=== PATIENT | female | born 1960 | race African-American/Black ===

== ENCOUNTER 2025-04-26 12:43 | Outpatient (CLI) | payer MEDICARE, MEDICAID, SELFPAY ==
--- NOTE | ~2025-04-26 | CT_ITS ---
EXAMINATION:CT lung screening DATE: 04/26/2025 13:13 INDICATION: Screening TECHNIQUE: Computed tomography (CT) of the chest was performed without intravenous contrast. The dose-length product (DLP) was 240.07 mGy-cm. COMPARISON: None. FINDINGS: Mild spiculated nodular appearing fibrosing changes in the lung bases with no discretely defined nodule or mass. No consolidation effusion or pneumothorax. Small to moderate-sized hiatal hernia. Heart size normal. Mild coronary artery calcifications. No pericardial effusion or bulky lymphadenopathy. Mild degenerative changes throughout the thoracic spine. No acute process seen in the visualized portions of the upper abdomen or visualized extrathoracic soft tissues.. IMPRESSION: 1. Likely benign nodular fibrosing changes in lung bases. Lung RADS 3. Correlate with follow-up low-dose lung cancer screening chest CT in 6 months. 2. Other chronic findings as above. Reviewed, dictated and finalized at location A. LINING PASTER IMPRESSION: 1. Likely benign nodular fibrosing changes in lung bases. Lung RADS 3. Correlat e with follow-up low-dose lung cancer screening chest CT in 6 months. 2. Other chronic findings as above.
--- OUTSIDE RECORDS SUMMARY | 2025-04-26 13:35 | XMS_ITS | Encounter Summary ---
Author Organization [facility] Address [address] [place] [address] Phone Care Team Providers Care College Archivist Name Role Phone Valentin Diaz MD Primary Care Provider +1 [phone] Joyce Church CATSHOVEL DRIVER Unavailable Unavailab Carl Trinidad MD Unavailable Kaity Cancino MD Primary Care Provider +1- [phone] Chicho Walker MD Primary Care Provider +1 -[phone] Kaity Cancino MD Primary Care Provider +1- [phone] Chicho Walker MD Primary Care Provider +1 -[phone] Reason for Referral * Radiology Services (Routine) - Closed Specialty Diagnoses / Procedures Referred By Brando [email or web address] Referred To Contact Radiology Diagnoses Cervical lymphadenopathy Procedures CT SOFT TISSUE NECK W CONTRAST Valentin Diaz MD #[address] [address] Phone: tel: fax: Referral ID Status Reason Start Date Expiration Date Visits Re quested Visits Authorized [id number] Closed 06/23/2020 1 1 S PRODUCTION MACHINE OPERATOR Reason for Visit * Reason Comments Medication Refill Encounter Details Date Type Department Care Team (Late st Contact Info) Description 06/23/2020 Refill [facility] - Family Medicine [facility] [address] [place] [address] Valentin Diaz MD #[address] [address] Medication Refill Social History Tobacco Use Types Packs/Day Years Used Date Smoking Tobacco: Former Cigarettes 1 43 1 - 03/08/2015 Smokeless Tobacco: Never Alcohol Use Standard Drinks/Week Comments Not Currently 0 (1 standard drink = 0.6 oz pur e alcohol) pt hasn't drank in 20 years PHQ-2 Answer Date Recorded Total Score - Questions 1-9 7 06/10 Sexually Active Control Partners Comments Not Currently Comments No Sex and Gender Information Value Date Recorded Sex Assigned at Not on file Legal Sex Female 11:46 PM CDT Gender Identity Not on file Sexual Orientation Not on file COVID-19 Exposure Response Date Recorded In the last month, have you been in contact with someone who was confirmed or suspected to have Coronavirus / COVID-19? No / Unsure 06/20/2020 12:51 PM GLASS PRODUCTION MACHINE OPERATOR documented as of this encounter Plan of Treatment Scheduled Orders Name Type Priority Associated Diagnoses Orde r Schedule CT SOFT TISSUE NECK W CONTRAST Imaging Routine Cervical lymphadenopathy Expected: 06/23/2020 (Approximate), Expires: 06/23/2021 documented as of this encounter Visit Diagnoses Diagnosis Cervical lymphadenopathy- Primary Enlargement of lymph nodes documented in this encounter Additional Health Concerns Assessment Noted Time PHQ-9 Depression Total Score: 7 06/20/19 21 1:00 PM GLASS PRODUCTION MACHINE OPERATOR documented as of this encounter Care Teams College Archivist Relationship Specialty Start Date End Date Valentin Diaz MD #[address] [address] PCP - General Family Medicine 11/28/18 02/23/23 Kaity Cancino MD [address] [place] [address] PCP - General Family Medicine 03/10/24 05/29/24 Chicho Walker MD [address] [place] [address] PCP - General Internal Medicine 05/30/24 06/20/24 Kaity Cancino MD [address] [place] [address] PCP - General Family Medicine 06/21/24 07/19/24 Chicho Walker MD [address] [place] [address] PCP - General Internal Medicine 07/20/24 Joyce Church, SARAN [place] Product Manager [employer] 07/31/21 10/14/21 Carl Myles MD #[address] [address] Consulting Physician Colon and Rectal Surgery 03/04/22 documented as of this encounter
--- OUTSIDE RECORDS SUMMARY | 2025-04-26 13:35 | XMS_ITS | Encounter Summary ---
Author Organization [facility] Address [address] [place] [address] Phone Care Team Providers Care Banking Representative Name Role Phone Valentin Diaz MD Primary Care Provider +1 -[phone] Joyce Church MAGNETIC HEALER Unavailable Unavailab Carl Trinidad MD Unavailable Kaity Cancino MD Primary Care Provider +- [phone] Chicho Walker MD Primary Care Provider +[phone] Kaity Cancino MD Primary Care Provider + [phone] Chicho Walker MD Primary Care Provider + -[phone] Reason for Visit * Reason Comments Medication Refill Encounter Details Date Type Department Care Team (Late st Contact Info) Description 07/18/2020 Refill [facility] #[address] [place] [address] Valentin Diaz MD #[address] [address] Medication Refill Social History Tobacco Use Types [...] have Coronavirus / COVID-19? No / Unsure 07/17/2020 10:39 AM MIXING MACHINE ATTENDANT documented as of this encounter Miscellaneous Notes * Telephone Encounter - Sera Chowdary RN - 07/18/2020 11:34 AM CST The original prescription was discontinued on 06/17/2020 by Valentin Diaz MD for the following reason: Therapy completed. NG MACHINE ATTENDANT documented in this encounter Plan of Treatment Not on file documented as of this encounter Visit Diagnoses Not on filedocumented in this encounter Additional Health Concerns Assessment Noted Time PHQ-9 Depression Total Score: 7 06/20/19 21 1:00 PM MIXING MACHINE ATTENDANT documented as of this encounter Care Teams Banking Representative Relationship Specialty Start Date End Date Valentin Diaz MD #[address] [address] PCP - General Family Medicine 11/28/18 02/23/23 Kaity Cancino MD [address] [place] [address] PCP - General Family Medicine 03/10/24 05/29/24 Chicho Walker MD [address] [place] [address] PCP - General Internal Medicine 05/30/24 06/20/24 Kaity Cancino MD [address] [place] [address] PCP - General Family Medicine 06/21/24 07/19/24 Chicho Walker MD [address] [place] [address] PCP - General Internal Medicine 07/20/24 Joyce Church LSW PR Manager Laboratory 07/31/21 10/14/21 Carl Myles MD #[address] [address] Consulting Physician Colon and Rectal Surgery 03/04/22 documented as of this encounter
--- OUTSIDE RECORDS SUMMARY | 2025-04-26 13:35 | XMS_ITS | Encounter Summary ---
Author Organization [facility] Address [address] [place] [address] Phone Care Team Providers Care Lead Software Tester Name Role Phone Valentin Diaz MD Primary Care Provider +1 -[phone] Joyce Church CALL BOX WIRER Unavailable Unavailab Carl Trinidad MD Unavailable Kaity Cancino MD Primary Care Provider +- [phone] Chicho Walker MD Primary Care Provider + -[phone] Kaity Cancino MD Primary Care Provider + [phone] Chicho Walker MD Primary Care Provider + -[phone] Reason for Visit * Reason Comments Medication Refill Encounter Details Date Type Department Care Team (Late st Contact Info) Description 10/30/2020 Refill [facility] #[address] [place] [address] Valentin Diaz MD #[address] [address] Medication Refill Social History Tobacco Use Types [...] have Coronavirus / COVID-19? No / Unsure 10/01/2020 11:39 AM CDT documented as of this encounter Miscellaneous Notes * Telephone Encounter - Sera Chowdary RN - 10/31/2020 12:08 PM CDT The original prescription was reordered on 10/30/2020 by Valentin Diaz MD documented in this encounter Plan of Treatment Not on file documented as of this encounter Visit Diagnoses Not on filedocumented in this encounter Additional Health Concerns Assessment Noted Time PHQ-9 Depression Total Score: 7 06/20/19 21 1:00 PM VIDEO PRODUCTION INTERN documented as of this encounter Care Teams Lead Software Tester Relationship Specialty Start Date End Date Valentin Diaz MD #[address] [address] PCP - General Family Medicine 11/28/18 02/23/23 Kaity Cancino MD [address] [place] [address] PCP - General Family Medicine 03/10/24 05/29/24 Chicho Walker MD [address] [place] [address] PCP - General Internal Medicine 05/30/24 06/20/24 Kaity Cancino MD [address] [place] [address] PCP - General Family Medicine 06/21/24 07/19/24 Chicho Walker MD [address] [place] [address] PCP - General Internal Medicine 07/20/24 Joyce Church LSW [place] Fisheries Diver 07/31/21 10/14/21 Carl Myles MD #[address] [address] Consulting Physician Colon and Rectal Surgery 03/04/22 documented as of this encounter
--- OUTSIDE RECORDS SUMMARY | 2025-04-26 13:35 | XMS_ITS | Encounter Summary ---
Author Organization [facility] Address [address] [place] [address] Phone Care Team Providers Care Wind Up Worker Name Role Phone Valentin Diaz MD Primary Care Provider [phone] [phone] Carl Myles MD Unavailable Kaity Cancino MD Primary Care Provider + [phone] Chicho Walker MD Primary Care Provider +[phone] Kaity Cancino MD Primary Care Provider + [phone] Chicho Walker MD Primary Care Provider +[phone] Reason for Visit * Reason Comments Medication Refill Encounter Details Date Type Department Care Team (Late st Contact Info) Description 01/08/2022 Refill [facility] #[address] [place] [address] Valentin Diaz MD #[address] [address] Medication Refill Social History Tobacco Use Types Packs/Day Years Used Date Smoking Tobacco: Every Day Cigarettes 0.5 43 Started: 03/08/1972; Last attempted to quit: 03/08/2015 Smokeless Tobacco: Never Alcohol Use Standard Drinks/Week Comments Not Currently 0 (1 standard drink = 0.6 oz pur e alcohol) pt hasn't drank in 20 years PHQ-2 Answer Date Recorded Total Score - Questions 1-9 1 07/09 Sexually Active Control Partners Comments Not Currently Comments No Sex and Gender Information Value Date Recorded Sex Assigned at Not on file Legal Sex Female 11:46 PM CDT Gender Identity Not on file Sexual Orientation Not on file documented as of this encounter Miscellaneous Notes * Telephone Encounter - Sera Chowdary RN - 01/13/2022 8:05 AM CDT Name from pharmacy: LORAZEPAM 0.5 MG TABLET Will file in chart as: LORazepam (ATIVAN) 0.5 MG Tablet The original prescription was reordered on 01/09/2022 by Valentin Diaz MD. * Telephone Encounter - Sera Chowdary RN - 01/08/2022 10:08 AM CDT duplicate documented in this encounter Plan of Treatment Not on file documented as of this encounter Visit Diagnoses Diagnosis Anxiety Anxiety state, unspecified documented in this encounter Additional Health Concerns Assessment Noted Time PHQ-9 Depression Total Score: 7 06/20/19 21 1:00 PM NICK SETTER documented as of this encounter Care Teams Wind Up Worker Relationship Specialty Start Date End Date Valentin Diaz MD #[address] [address] PCP - General Family Medicine 11/28/18 02/23/23 Kaity Cancino MD [address] [place] [address] PCP - General Family Medicine 03/10/24 05/29/24 Chicho Walker MD [address] [place] [address] PCP - General Internal Medicine 05/30/24 06/20/24 Kaity Cancino MD [address] [place] [address] PCP - General Family Medicine 06/21/24 07/19/24 Chicho Walker MD [address] [place] [address] PCP - General Internal Medicine 07/20/24 Carl Myles MD #[address] [address] Consulting Physician Colon and Rectal Surgery 03/04/22 documented as of this encounter
--- OUTSIDE RECORDS SUMMARY | 2025-04-26 13:35 | XMS_ITS ---
Author Organization [facility] Address [address] [place] [address] Phone Care Team Providers Care Section Plotter Operator Name Role Phone Carl Myles MD Unavailable Chicho Walker MD Primary Care Provider +1 -[phone] [facility] Chronic Condition Monitoring Status:Enrolled (Active) Program category:Remote Patient Monitoring Start date:06/07/2024 Enrollment date:06/07/2024 Related social drivers of health:Intimate Partner Violence, Social Connections, Alcohol Use, Tobacco Use, Financial Resource Strain,Depression, Stress, Physical Activity, Food Insecurity, Transportation Needs, Housing Stability, Utilities Continued Care and Services Coordination
--- OUTSIDE RECORDS SUMMARY | 2025-04-26 13:35 | XMS_ITS | Encounter Summary ---
Author Organization [facility] Address [address] [place] [address] Phone Care Team Providers Care Architectural Renderer Name Role Phone Valentin Diaz MD Primary Care Provider +1 [phone] Joyce Church VPK TEACHER Unavailable Unavailab Carl Trinidad MD Unavailable Kaity Cancino MD Primary Care Provider +- [phone] Chicho Walker MD Primary Care Provider + -[phone] Kaity Cancino MD Primary Care Provider + [phone] Chicho Walker MD Primary Care Provider + -[phone] Reason for Visit * Reason Comments Medication Refill Encounter Details Date Type Department Care Team (Late st Contact Info) Description 08/20/2020 Refill [facility] #[address] [place] [address] Valentin Diaz MD #[address] [address] Medication Refill Social History Tobacco Use Types [...] have Coronavirus / COVID-19? No / Unsure 08/19/2020 8:30 AM CDT documented as of this encounter Miscellaneous Notes * Telephone Encounter - Rama Lacy RN - 08/20/2020 12:04 PM CDT Last refill 08/06/2020 for 15 days Medication failed the protocol, provider to review and approve the medication order if appropriate. Requested Prescriptions Pending Prescriptions Disp Refills LORazepam (ATIVAN) 0.5 MG Tablet [Pharmacy Med Name: LORAZEPAM 0.5 MG TABLET] 30 Tablet 0 Sig: TAKE 1 TABLET BY MOUTH TWICE A DAY NEEDED FOR ANXIETY Not Delegated - Anesthesia: Anesthetics & Sedatives Failed - 08/20/2020 11:59 AM Failed - This refill cannot be delegated Passed - Valid encounter within last 6 months Past Office Visits Recent Outpatient Visits 2 months ago [facility] Valentin Marques MD 3 months ago Essential hypertension [facility] Valentin Marques MD 6 months ago Palpitations [facility] Valentin Marques MD 8 months ago History of humerus fracture [facility] Valentin Marques MD 9 months ago Gallbladder polyp [facility] Valentin Mcmahon MD Upcoming Appointments Future Appointments In 3 weeks Valentin Diaz MD [facility] Kunal [facility] BRANCH ASSOCIATE - Recent and Past Visits Recent Visits Date Type Provider Dept 06/17/20 Office Visit Valentin Diaz MD [facility] 04/23/20 Telemedicine Valentin Diaz MD [facility] 02/14/20 Office Visit Valentin Diaz MD [facility] 12/15/19 Office Visit Valentin Diaz MD [facility] 11/14/19 Office Visit Valentin Diaz MD [facility] 11/09/19 Appointment Valentin Diaz MD [facility] 11/08/19 Appointment Valentin Diaz MD [facility] 09/12/19 Telemedicine Valentin Diaz MD [facility] 06/12/19 Office Visit Chicho Dwyer APN, COMPOSING ROOM SUPERVISOR [facility] Showing recent visits within past 460 days with a meds authorizing provider and meeting all other requirements Future Appointments Date Type Provider Dept 09/16/20 Appointment Valentin Diaz MD [facility] Showing future appointments within next 90 days with a meds authorizing provider and meeting all other requirements documented in this encounter Plan of Treatment Not on file documented as of this encounter Visit Diagnoses Not on filedocumented in this encounter Additional Health Concerns Assessment Noted Time PHQ-9 Depression Total Score: 7 06/20/19 21 1:00 PM ETHOLOGIST documented as of this encounter Care Teams Architectural Renderer Relationship Specialty Start Date End Date Valentin Diaz MD #[address] [address] PCP - General Family Medicine 11/28/18 02/23/23 Kaity Cancino MD [address] [place] [address] PCP - General Family Medicine 03/10/24 05/29/24 Chicho Walker MD [address] [place] [address] PCP - General Internal Medicine 05/30/24 06/20/24 Kaity Cancino MD [address] [place] [address] PCP - General Family Medicine 06/21/24 07/19/24 Chicho Walker MD [address] [place] [address] PCP - General Internal Medicine 07/20/24 Joyce Church, VPK TEACHER [place] Manufacturing Scheduler 07/31/21 10/14/21 Carl Myles MD #[address] [address] Consulting Physician Colon and Rectal Surgery 03/04/22 documented as of this encounter
--- OUTSIDE RECORDS SUMMARY | 2025-04-26 13:35 | XMS_ITS | Encounter Summary ---
Author Organization [facility] Address [address] [place] [address] Phone Care Team Providers Care Leather Heel Breaster Name Role Phone Valentin Diaz MD Primary Care Provider +1 -[phone] Joyce Church LIQUID CENTER ASSEMBLER Unavailable Unavailab Carl Trinidad MD Unavailable Kaity Cancino MD Primary Care Provider +- [phone] Chicho Walker MD Primary Care Provider + -[phone] Kaity Cancino MD Primary Care Provider + [phone] Chicho Walker MD Primary Care Provider +1 -[phone] Reason for Visit * Reason Comments Medication Refill Encounter Details Date Type Department Care Team (Late st Contact Info) Description 04/11/2021 Refill [facility] #[address] [place] [address] Valentin Diaz MD #[address] [address] Medication Refill Social History Tobacco Use Types [...] Telephone Encounter - Sera Chowdary RN - 04/14/2021 7:38 AM CST Name from pharmacy: LORAZEPAM 0.5 MG TABLET Will file in chart as: LORazepam (ATIVAN) 0.5 MG Tablet The original prescription was reordered on 04/12/2021 by Valentin Diaz MD. ICATION MANAGER * Telephone Encounter - Sera Chowdary RN - 04/11/2021 3:36 PM CST duplicate ICATION MANAGER documented in this encounter Plan of Treatment Not on file documented as of this encounter Visit Diagnoses Diagnosis Anxiety Anxiety state, unspecified documented in this encounter Additional Health Concerns Assessment Noted Time PHQ-9 Depression Total Score: 7 06/20/19 21 1:00 PM APPLICATION MANAGER documented as of this encounter Care Teams Leather Heel Breaster Relationship Specialty Start Date End Date Valentin Diaz MD #[address] [address] PCP - General Family Medicine 11/28/18 02/23/23 Kaity Cancino MD [address] [place] [address] PCP - General Family Medicine 03/10/24 05/29/24 Chicho Walker MD [address] [place] [address] PCP - General Internal Medicine 05/30/24 06/20/24 Kaity Cancino MD [address] [address] PCP - General Family Medicine 06/21/24 07/19/24 Chicho Walker MD [address] [place] [address] PCP - General Internal Medicine 07/20/24 Joyce Church, LIQUID CENTER ASSEMBLER [place] General Merchandise Salesperson 07/31/21 10/14/21 Carl Myles MD #[address] [address] Consulting Physician Colon and Rectal Surgery 03/04/22 documented as of this encounter
--- OUTSIDE RECORDS SUMMARY | 2025-04-26 13:35 | XMS_ITS | Encounter Summary ---
Author Organization [facility] Address [address] [place] [address] Phone Care Team Providers Care Litigation Secretary Name Role Phone Valentin Diaz MD Primary Care Provider +1 -[phone] Joyce Church GOLF CLUB HEAD FORMER Unavailable Unavailab Carl Trinidad MD Unavailable Kaity Cancino MD Primary Care Provider +- [phone] Chicho Walker MD Primary Care Provider +[phone] Kaity Cancino MD Primary Care Provider + [phone] Chicho Walker MD Primary Care Provider + -[phone] Reason for Visit * Reason Comments Medication Refill Encounter Details Date Type Department Care Team (Late st Contact Info) Description 09/03/2020 Refill [facility] #[address] [place] [address] Valentin Diaz MD #[address] [address] Medication Refill Social History Tobacco Use Types [...] have Coronavirus / COVID-19? No / Unsure 08/30/2020 11:04 AM CDT documented as of this encounter Miscellaneous Notes * Telephone Encounter - Sera Chowdary RN - 09/04/2020 11:24 AM CDT [place] 08/21/20 15 days Medication failed the protocol, provider to review and approve the medication order if appropriate. Requested Prescriptions Pending Prescriptions Disp Refills LORazepam (ATIVAN) 0.5 MG Tablet [Pharmacy Med Name: LORAZEPAM 0.5 MG TABLET] 30 Tablet 0 Sig: TAKE 1 TABLET BY MOUTH TWICE A DAY NEEDED FOR ANXIETY healthfinch Not Delegated - Anesthesia: Anesthetics & Sedatives Failed - 09/04/2020 11:22 AM Failed - This refill cannot be delegated Passed - Valid encounter within last 6 months Past Office Visits Recent Outpatient Visits 2 months ago [facility] Marques MD 4 months ago Essential hypertension [facility] Valentin Marques MD 6 months ago Palpitations [facility] Valentin Marques MD 8 months ago History of humerus fracture [facility] Valentin Marques MD 9 months ago Gallbladder polyp [facility] Valentin Marques MD Upcoming Appointments Future Appointments In 1 week Valentin Diaz MD [facility] MARIE Syed In 2 weeks BHARGAVI NOWAK [facility] MARIE Syed EQUALIZING SAW OPERATOR - Recent and Past Visits Recent Visits Date Type Provider Dept 06/17/20 Office Visit Valentin Diaz MD [facility] 04/23/20 Telemedicine Valentin Diaz MD [facility] 02/14/20 Office Visit Valentin Diaz MD [facility] 12/15/19 Office Visit Valentin Diaz MD [facility] 11/14/19 Office Visit Valentin Diaz MD [facility] 11/09/19 Appointment Valentin Diaz MD [facility] 11/08/19 Appointment Valentin Diaz MD [facility] 09/12/19 Telemedicine Valentin Diaz MD [facility] 06/12/19 Office Visit Chicho Dwyer, DIALYSIS CLINICAL MANAGER, CASINO MANAGER [facility] Showing recent visits within past 460 days [...] Total Score: 7 06/20/19 21 1:00 PM PRESCHOOL HEAD TEACHER documented as of this encounter Care Teams Litigation Secretary Relationship Specialty Start Date End Date Valentin Diaz MD #[address] [address] PCP - General Family Medicine 11/28/18 02/23/23 Kaity Cancino MD [address] [place] [address] PCP - General Family Medicine 03/10/24 05/29/24 Chicho Walker MD [address] [place] [address] PCP - General Internal Medicine 05/30/24 06/20/24 Kaity Cancino MD [address] [place] [address] PCP - General Family Medicine 06/21/24 07/19/24 Chicho Walker MD [address] [place] [address] PCP - General Internal Medicine 07/20/24 Joyce Church LSW DC Supervisor Labor Gang 07/31/21 10/14/21 Carl Myles MD #[address] [address] Consulting Physician Colon and Rectal Surgery 03/04/22 documented as of this encounter
--- OUTSIDE RECORDS SUMMARY | 2025-04-26 13:35 | XMS_ITS | Encounter Summary ---
Author Organization [facility] Address [address] [place] [address] Phone Care Team Providers Care Trackmobile Operator Name Role Phone Valentin Diaz MD Primary Care Provider [phone] Carl Myles MD Unavailable Kaity Cancino MD Primary Care Provider + [phone] Chicho Walker MD Primary Care Provider [phone] Kaity Cancino MD Primary Care Provider + [phone] Chicho Walker MD Primary Care Provider + [phone] Reason for Visit * Reason Comments Medication Refill Encounter Details Date Type Department Care Team (Late st Contact Info) Description 12/03/2022 Refill [facility] - [facility] [address] [place] [address] Valentin Diaz MD [address] [address] Medication Refill Social History Tobacco Use Types Packs/Day Years Used Date Smoking Tobacco: Every Day Cigarettes 0.5 45.1 Started: 03/12/1980 Smokeless Tobacco: Never Alcohol Use Standard Drinks/Week Comments Not Currently 0 (1 standard drink = 0.6 oz pur e alcohol) quit in 1994 PHQ-2 Answer Date Recorded Total Score - Questions 1-9 1 07/09 Sexually Active Control Partners Comments Not Currently Male Comments No Sex and Gender Information Value Date Recorded Sex Assigned at Not on file Legal Sex Female 11:46 PM CDT Gender Identity Not on file Sexual Orientation Not on file documented as of this encounter Miscellaneous Notes * Telephone Encounter - Rodrigue Chowdarybuster Puente RN - 12/03/2022 4:03 PM CDT Medication failed the protocol, provider to review and approve the medication order if appropriate. Requested Prescriptions Pending Prescriptions Disp Refills valsartan-hydroCHLOROthiazide (DIOVAN-HCT) 160-12.5 MG Tablet [Pharmacy Med Name: VALSARTAN-HCTZ 160-12.5 MG TAB] 90 Tablet 1 Sig: TAKE 1 TABLET BY MOUTH EVERY DAY ANGIOTENSIN-II RECEPTOR BLOCKERS-DIURETICS COMBO PROTOCOL Failed - 12/03/2022 9:11 AM Failed - Serum potassium on record in past 12 months POTASSIUM Date Value Ref Range Status 04/23/2021 3.9 3.5 - 5.1 mmol/L Final Failed - Serum sodium on record in past 12 months SODIUM Date Value Ref Range Status 04/23/2021 137 136 - 144 mmol/L Final Failed - GFR on record in past 12 months GFR, EST. Date Value Ref Range Status 04/23/2021 >60 >=60 Final Comment: Creatinine Clearance is the preferred criteria for selecting drug dose adjustments in renally impaired patients. The GFR is provided as additional pertinent clinical information. GFR is reported in mL/min/1.73 sq m. Passed - BP on record in the past year Clinician-entered: BP Readings from Last 3 Encounters: 03/12/22 132/84 03/01/22 153/82 02/19/22 152/82 Patient-entered: No data recorded Passed - Visit with relevant provider in past year or upcoming 90 days Recent Visits Date Type Provider Dept 05/20/22 Telemedicine Valentin Diaz MD [facility] 02/19/22 Office Visit Valentin Diaz MD [facility] Showing recent visits within past 365 days and meeting all other requirements Future Appointments No visits were found meeting these conditions. Showing future appointments within next 90 days and meeting all other requirements documented in this encounter Plan of Treatment Not on file documented as of this encounter Visit Diagnoses Diagnosis Essential (primary) hypertension Unspecified essential hypertension documented in this encounter Additional Health Concerns Assessment Noted Time PHQ-9 Depression Total Score: 7 06/20/19 21 1:00 PM OCC MED PHYSICIAN documented as of this encounter Care Teams Trackmobile Operator Relationship Specialty Start Date End Date Valentin Diaz MD #2 [facility] [address] [place] [address] PCP - General Family Medicine 11/28/18 02/23/23 Kaity Cancino MD [address] [place] [address] PCP - General Family Medicine 03/10/24 05/29/24 Chicho Walker MD [address] [place] [address] PCP - General Internal Medicine 05/30/24 06/20/24 Kaity Cancino MD [address] [place] [address] PCP - General Family Medicine 06/21/24 07/19/24 Chicho Walker MD [address] [place] [address] PCP - General Internal Medicine 07/20/24 Carl Myles MD #2 [facility] [address] [place] [address] Consulting Physician Colon and Rectal Surgery 03/04/22 documented as of this encounter
--- OUTSIDE RECORDS SUMMARY | 2025-04-26 13:35 | XMS_ITS | Encounter Summary ---
Author Organization [facility] Address [address] [place] [address] Phone Care Team Providers Care Forklift Truck Operator Name Role Phone Valentin Diaz MD Primary Care Provider [phone] Joyce Church BACON SLICER Unavailable Unavailab Carl Trinidad MD Unavailable Kaity Cancino MD Primary Care Provider + [phone] Chicho Walker MD Primary Care Provider [phone] Kaity Cancino MD Primary Care Provider + [phone] Chicho Walker MD Primary Care Provider + [phone] Reason for Visit * Reason Comments Medication Refill Encounter Details Date Type Department Care Team (Late st Contact Info) Description 07/22/2021 Refill [facility] - [facility] Medicine [facility] [address] [place] [address] Valentin Diaz MD [address] [address] Medication Refill Social History Tobacco Use Types [...] Exposure Response Date Recorded In the last 10 days, have yo u been in contact with someone who was confirmed or suspected to have Coronavirus/COVID-19? No / Unsure 07/23/2021 10:40 AM CDT documented as of this encounter Miscellaneous Notes * Telephone Encounter - Sera Chowdary RN - 07/23/2021 7:43 AM CDT Name from pharmacy: LORAZEPAM 0.5 MG TABLET Will file in chart as: LORazepam (ATIVAN) 0.5 MG Tablet The original prescription was reordered on 07/23/2021 by Valentin Diaz MD. * Telephone Encounter - Sera Chowdary RN - 07/22/2021 3:50 PM CDT duplicate documented in this encounter Plan of Treatment Not on file documented as of this encounter Visit Diagnoses Diagnosis Anxiety Anxiety state, unspecified documented in this encounter Additional Health Concerns Assessment Noted Time PHQ-9 Depression Total Score: 7 06/20/19 21 1:00 PM SENIOR INSTRUMENTATION ENGINEER documented as of this encounter Care Teams Forklift Truck Operator Relationship Specialty Start Date End Date Valentin Diaz MD #[address] [address] PCP - General Family Medicine 11/28/18 02/23/23 Kaity Cancino MD [address] [place] [address] PCP - General Family Medicine 03/10/24 05/29/24 Chicho Walker MD [address] [place] [address] PCP - General Internal Medicine 05/30/24 06/20/24 Kaity Cancino MD [address] [place] [address] PCP - General Family Medicine 06/21/24 07/19/24 Chicho Walker MD [address] [place] [address] PCP - General Internal Medicine 07/20/24 Joyce Church[facility] Processing Clerk 07/31/21 10/14/21 Carl Myles MD #[address] [address] Consulting Physician Colon and Rectal Surgery 03/04/22 documented as of this encounter
--- OUTSIDE RECORDS SUMMARY | 2025-04-26 13:35 | XMS_ITS | Clinical Summary ---
Author Organization [facility] Address [address] [place] [address] Phone Care Team Providers Care Cut Off Operator Scorer Name Role Phone Carl Myles MD Unavailable Chicho Walker MD Primary Care Provider [phone] Allergies Active Allergy Reactions Criticality Noted Date Comments Cyclobenzaprine Hcl Other (see Comments) 2014 confusion Ibuprofen Other (see Comments) 06/12/2019 Morphine Itching,Nausea Low 03/29/2015 Nsaids Nausea 03/29/2015 Prednisone Hives,Other (see Comments) 05/12/2019 Pt states it changed her mood Tizanidine Hcl Other (see Comments) 03/12/2022 Makes her feel weird Medications Disposable Gloves Misc 1 Units by Does not apply route 4 times daily. 200 Each 3 4 Active Incontinence Supply Disposable (Protect Underwear Xtra Large) Misc 1 Units by Does not apply route 2 times daily. 60 Each 2 4 Active Incontinence Supply Disposable (Dignity Plus Super Liners) Misc 1 Units by Does not apply route 2 times daily. 60 Each 1 4 Active meloxicam (MOBIC) 15 MG TabletIndication s:Closed fracture of right shoulder, sequela Take 1 Tablet by mouth daily. 90 Tablet 3 4 Active VITAMIN D PO Take by mouth. Ac tive Multiple Vitamin (MULTI-VITAMIN PO) Take by mouth. Activ e ACETAMINOPHEN PO Take by mouth. Active diphenhydrAMINE HCl (BENADRYL PO) Take by mouth. Activ e azelastine (ASTELIN) 0.1 % SolutionIndicati ons:Seasonal allergic rhinitis, unspecified trigger Two puffs in each nostril twice a day as needed for nasal congestion and sneezing. Drink orange soda to get rid of the after taste. Do not mix with alcohol. 30 mL 3 4 Active dilTIAZem (CARDIZEM CD) 120 MG CAPSULE SR 24 HRIndications:Hy pertension, essential Take 1 Capsule by mouth daily. 90 Capsule 1 5 Active halobetasol (ULTRAVATE) 0.05 % Cream 5 Active lidocaine (XYLOCAINE) 5 % Ointment 5 Active valsartan-hydroC HLOROthiazide (DIOVAN-HCT) 160-12.5 MG TabletIndication s:Hypertension, essential TAKE 1 TABLET BY MOUTH EVERY DAY 90 Tablet 5 Active metoprolol Succinate (TOPROL-XL) 100 MG TABLET SR 24 HRIndications:Hy pertension, essential TAKE 1 TABLET BY MOUTH EVERY DAY 90 Tablet 1 5 Active Active Problems Problem Noted Date Diagnosed Date Hyperpigmentation 02/23/2023 Degenerative lumbar spinal stenosis 04/14/2022 Vitreous floaters of both eyes 11/14/2021 Tobacco abuse 11/14/2021 Personal history of tobacco use, presenting hazards to health 11/14/2021 Housing instability 07/28/2021 Pancreatic lesion 07/28/2021 Hypertension, essential 04/23/2021 Major depressive disorder, r ecurrent episode, moderate with anxious distress 07/11/2020 Anxiety 04/23/2020 Left cervical lymphadenopathy 04/18/2020 Impaired mobility and ADLs 12/15/2019 Nicotine dependence 12/01/2019 Gallbladder polyp 10/16/2019 Diffuse nodular cirrhosis of liver 10/16/2019 Vitamin D insufficiency 07/30/2019 Chronic bilateral low back pain with bilateral s ciatica 05/25/2019 Chronic neck pain 05/12/2019 Chronic narcotic use 05/12/2019 Noncompliance 05/12/2019 Irritable bowel syndrome with diarrhea 9 Obesity (BMI 30-39.9) 11/28/2018 Palpitations 11/28/2018 Chronic pain syndrome 11/28/2018 Resolved Problems Problem Noted Date Diagnosed Date Resolved Date Closed displaced comminuted fracture of shaft of right humerus 07/20/2024 07/20/2024 Lumbar radiculopathy 12/10/2022 025 [facility] (current) use of opiate analgesic 04/14/2022 07/20/2024 Generalized postprandial abdominal pain 04/23/2021 07/20/2024 Postprandial bloating 04/23/20212024 Postprandial diarrhea 04/23/20212024 Diarrhea 12/17/2020 07/20/2024 Hypokalemia 09/22/2020 07/20/2024 History of humerus fracture 12/15/2019 07/20/2024 Right arm pain 12/15/2019 07/20/2024 Hepatitis C virus infection without hepatic coma 09/25/2019 07/20/2024 Hepatitis C antibody test positive 07/30/2019 07/20/2024 Hyperglycemia 07/30/2019 07/20/2024 Hyperthyroidism 07/30/2019 07/20/2024 Elevated liver enzymes 07/30/201907/20 Poor vision 05/12/2019 07/20/2024 Chronic back pain greater th an 3 months duration 05/12/2019 07/20/2024 Acute bronchitis 04/19/2019 01/11/2025 High blood pressure 11/28/2018 07/21/19 25 Encounters Date Type Department Care Team Description 02/10/[facility] [place] [address] [place] [id number] Kaity Cancino MD Medication Refill 02/10/2025 [facility] [place] [address] [place] [id number] Chicho Walker MD Medication Refill 01/26/[address] [facility] [place] [address] [place] [address] Chicho Walker MD from Last 3 Months Immunizations Immunization Administration Dates Next Due Covid-19, Mrna, Lnp-s, PF, 1 00 mcg/0.5 mL Dose (Moderna) 09/23/2020,08/27/2020 Influenza, Injectable, Quadrivalent 02/04/2018,1 05/13/2014 Family History Medical History Relation Name Comments Other-comment Daughter 1 obese No Known Problems Daughter 2 Heart Attack Father Hypertension Father No Known Problems Half-Sister freeman Cancer Mother Lung Cancer Mother No Known Problems Son 1 Seizures Son 2 No Known Problems Son 3 Relation Name Status Comments Daughter 1 Alive Daughter 2 Alive Father Half-Brother 1 Alive Half-Brother 2 Half-Sister freeman Alive Mother Son 1 Alive Son 2 Alive Son 3 Social History Tobacco Use Types Packs/Day Years Used Date Smoking Tobacco: Every Day Cigarettes 0.5 45.1 Started: 03/12/1980 Smokeless Tobacco: Never Tobacco Cessation:Ready to Q uit: No; Counseling Given: No Alcohol Use Standard Drinks/Week Comments Not Currently 0 (1 standard drink = 0.6 oz pur e alcohol) [employer] Answer Date Recorded In the past 12 months has [employer] gas, oil, or water [employer] threatened to shut off services in your home? Patient declined 07/20/2024 Social Connection and Isolation Panel Answer Date Recorded In a typical week, how many times do you talk on the phone with family, friends, or neighbors? Patient declined 07/20/2024 How often do you get togethe r with friends or relatives? Patient declined 07/20/2024 How often do you attend sabianism or yazidi serv ices? Patient declined 07/20/2024 Do you belong to any clubs o r organizations such as sabianism groups, unions, fraternal or athletic groups, or school groups? Patient declined 07/20/2024 How often do you attend meet ings of the clubs or organizations you belong to? Patient declined 07/20/2024 Are you , , di vorced, , never , or living with a partner? Patient declined 07/20/2024 AUDIT-C Answer Date Recorded Q1: How often do you have a drink containing alc ohol? Patient declined 07/20/2024 Q2: How many drinks containi ng alcohol do you have on a typical day when you are drinking? Patient declined 07/20/2024 Q3: How often do you have si x or more drinks on one occasion? Patient declined 07/20/2024 Overall Financial Resource Strain (CARDIA) Answe r Date Recorded How hard is it for you to pa y for the very basics like food, housing, medical care, and heating? Patient declined 07/20/2024 PHQ-2 Answer Date Recorded Total Score - Questions 1-9 12 0 05/2023 [facility]ational [facility] Questionnaire Answer Date Recorded Do you feel stress - tense, restless, nervous, or anxious, or unable to sleep at night because your mind is troubled all the time - these days? Patient declined 07/20/2024 Exercise Vital Sign Answer Date Recorde d On average, how many days pe r week do you engage in moderate to strenuous exercise (like a brisk walk)? Patient declined On average, how many minutes do you engage in exercise at this level? Patient declined 07/20/2024 Hunger Vital Sign Answer Date Recorded Within the past 12 months, y ou worried that your food would run out before you got the money to buy more. Patient declined Within the past 12 months, t he food you bought just didn't last and you didn't have money to get more. Patient declined PRAPARE - Transportation Answer Date Re corded In the past 12 months, has l ack of transportation kept you from medical appointments or from getting medications? Patient declined 07/20/2024 In the past 12 months, has l ack of transportation kept you from meetings, work, or from getting things needed for daily living? Patient declined 07/20/2024 Housing Stability Vital Sign Answer Garcia e Recorded In the last 12 months, was t here a time when you were not able to pay the mortgage or rent on time? Patient declined 07/21/19 25 Number of Times Moved in the Last Year Not on fi le 07/20/2024 At any time in the past 12 m [facility], were you homeless or living in a fdc (including now)? Patient declined 07/20/2024 Sexually Active Control Partners Comments Not Currently Male Comments No Sex and Gender Information Value Date Recorded Sex Assigned at Not on file Legal Sex Female 11:46 PM CDT Gender Identity Not on file Sexual Orientation Not on file Last Filed Vital Signs Vital Sign Reading Time Taken Comments Blood Pressure 168/84 07/20/2024 2:41 PM CDT Pulse 72 07/20/2024 2:41 PM CDT Temperature 36.3 C (97.4 F) 07/20/2024 2:41 PM CDT Respiratory Rate 20 07/20/2024 2:41 PM CDT Oxygen Saturation 97% 07/20/2024 2:41 PM CDT Inhaled Oxygen Concentration - - Weight 100.7 kg (222 lb) 07/20/2024 2:41 PM CDT Height 172.7 cm (5' 8) 07/20/2024 2:41 PM CDT Body Mass Index 33.75 07/20/2024 2:41 PM CDT Plan of Treatment Health Maintenance Due Date Last Done Comments DEXA Bone Density 1960 TdaP Immunization 1960 Pneumococcal Immunization (5 0+ years) (1 of 2 - PCV) 12/04/1978 Pap Smear 12/04/1980 Cervical Cancer Screening (CCS) 12/04/1989 HPV/Cotest 12/04/1989 Medicare Initial AWV [id number] 08/09/2003 Cologuard 12/04/2004 Colonoscopy 12/04/2004 Colorectal Cancer Screening 12/04/2004 Immunochemical Fecal Occult Blood 12/04/2004 Lung Cancer Screening 12/04/2009 Respiratory Syncytial Virus (RSV) Immunization (Adult) (1 - Risk 50-74 years 1-dose series) 12/04/2009 Zoster Immunization (1 of 2) 12/04/2009 Hepatitis B Immunization (1 of 3 - Risk 3-dose series) 2019 Mammogram 07/22/2021 07/22/2020, 03/09/2018 Influenza Immunization (#1) 2025 092 12/2017, 03/13/2015 SARS-COV-2 Immunization ( season) 2025 09/23/2020, 08/27/2020 Human Papillomavirus (HPV) Immunization (No Doses Required) Completed Meningococcal Immunization (ACWY) Aged Out No longer eligible b ased on patient's age to complete this topic Rotavirus Immunization Aged Out No lo nger eligible based on patient's age to complete this topic Procedures Procedure Name Priority Date/Time Associated Diagnosis Comments CECIL SCREENING BILATERAL DIGITAL W CAD W PRIMO Routine 07/22/2020 3:30 PM CDT Encounter for screening mammogram for breast cancer from Last 3 Months or Most Recently Relevant to Health Maintenance Results * CECIL SCREENING BILATERAL DIGITAL W CAD W PRIMO (07/22/2020 3:30 PM CDT) Anatomical Region Laterality Modality breast Bilateral Mammography 07/22/2020 3:05 PM CDT Narrative 07/25/2020 3:26 PM CDT - CECIL SCREENING BILATERAL DIGITAL W CAD W PRIMO BILATERAL DIGITAL SCREENING MAMMOGRAM 3D/2D WITH CAD WITH MEDIOLATERAL OBLIQUE CRANIOCAUDAL: 07/22/2020 The study was acquired using digital technology and interpreted from soft copy. Current study was also evaluated with ICAD version 7.2. CLINICAL: Routine screening. Patient has no complaints. No personal history of cancer. No family history of breast cancer. Scar of right axilla due to shoulder surgery in November 2019, patient states limited ROM. COMPARISONS: Comparison is made to exam dated: 03/09/2018 [facility]. BREAST TISSUE:There are scattered fibroglandular densities in both breasts. FINDINGS: There is a focal asymmetry in the right breast at 5 o'clock anterior depth. No other significant masses, calcifications, or other findings are seen in either breast. IMPRESSION: BI-RAD 0 ADDITIONAL IMAGING EVALUATION NEEDED The focal asymmetry in the right breast is indeterminate. Additional views with possible ultrasound are recommended. An immediate follow-up is recommended. The patient has been or will be contacted. Electronically signed by: Ally allen/mari:07/25/2020 14:02:00 Boat Laborer: Melita Villafana RT(R)(M), [facility] letter sent: Additional Imaging Reading location: [facility] BI-RADS: 0 Additional Imaging Evaluation Needed Procedure Note Ally Lawrence MD - 07/25/2020 - CECIL SCREENING BILATERAL DIGITAL W CAD W PRIMO BILATERAL DIGITAL SCREENING MAMMOGRAM 3D/2D WITH CAD WITH MEDIOLATERAL OBLIQUE CRANIOCAUDAL: 07/22/2020 The study was acquired using digital technology and interpreted from soft copy. Current study was also evaluated with ICAD version 7.2. CLINICAL: Routine screening. Patient has no complaints. No personal history of cancer. No family history of breast cancer. Scar of right axilla due to shoulder surgery in November 2019, patient states limited ROM. COMPARISONS: Comparison is made to exam dated: 03/09/2018 [facility]. BREAST TISSUE:There are scattered fibroglandular densities in both breasts. FINDINGS: There is a focal asymmetry in the right breast at 5 o'clock anterior depth. No other significant masses, calcifications, or other findings are seen in either breast. IMPRESSION: BI-RAD 0 ADDITIONAL IMAGING EVALUATION NEEDED The focal asymmetry in the right breast is indeterminate. Additional views with possible ultrasound are recommended. An immediate follow-up is recommended. The patient has been or will be contacted. Electronically signed by: Ally Lawrence M.D. ts/mari:07/25/2020 14:02:00 Boat Laborer: Melita Villafana RT(R)(M), [facility] letter sent: Additional Imaging Reading location: [facility] BI-RADS: 0 Additional Imaging Evaluation Needed [facility] Bentley Diaz MD IMG MAMMO ORDERABLES Joelle l Result from Last 3 Months or Most Recently Relevant to Health Maintenance Insurance MEDICAID [place] MEDICARE C [employer] Advance Directives * Full Code (Latest Code Status on File) Date Activated Date Inactivated Comments 12/27/2019 12:22 PM 03/22/2020 8:41 AM Care Teams Cut Off Operator Scorer Relationship Specialty Start Date End Date Chicho Walker MD [address] [place] [address] PCP - General Internal Medicine 07/20/24 Carl Myles MD #[address] [address] Consulting Physician Colon and Rectal Surgery 03/04/22
--- OUTSIDE RECORDS SUMMARY | 2025-04-26 13:35 | XMS_ITS | Clinical Summary ---
Author Organization [facility] Address [address] [place] [address] Care Team Providers Care Abrasive Mixer Helper Name Role Phone Conor Moore MD Unavailable [phone] Arslan Menchaca MD Primary Care Provider [phone] Allergies Active Allergy Reactions Criticality Noted Date Comments Cyclobenzaprine Unknown Ibuprofen Morphine Stomach upset,Itching Low 03/29/2015 Nsaids (Non-Steroidal Anti-Inflammatory Drug) Sulfa (Sulfonamide Antibiotics) Hives Medium 08/17/2018 Tizanidine Hcl Other (See comments) Low 03/12/2022 Makes her feel weird Ketorolac Stomach upset Low 11/23/2019 Medications cholecalciferol (VITAMIN D-3) 2000 unit capsule Take 1 capsule (2,000 Units total) by mouth daily 30 capsule 0 Active naloxone (NARCAN) 4 mg/actuation spray,non-aeroso lIndications:At risk for respiratory depression due to opioid Administer 1 spray (4 mg total) into affected nostril(s) as needed for respiratory depression or opioid reversal 1 each 3 Active metoprolol XL (TOPROL-XL) 100 mg 24 hr tablet TAKE 1 TABLET BY MOUTH EVERY DAY 90 tablet 1 4 Active amLODIPine (NORVASC) 2.5 mg tablet TAKE 1 TABLET BY MOUTH EVERY DAY 90 tablet 4 Active valsartan-hydroC HLOROthiazide (DIOVAN-HCT) 160-12.5 mg per tablet TAKE 1 TABLET BY MOUTH EVERY DAY 90 tablet 4 Active HYDROcodone-acet aminophen (NORCO) 10-325 mg per tabletIndication s:Pain Take 1 tablet by mouth 3 (three) times a day as needed for pain 90 tablet 4 Active HYDROcodone-acet aminophen (NORCO) 10-325 mg per tabletIndication s:Pain Take 1 tablet by mouth 3 (three) times a day as needed for pain 90 tablet 4 Active HYDROcodone-acet aminophen (NORCO) 10-325 mg per tabletIndication s:Pain Take 1 tablet by mouth 3 (three) times a day as needed for pain 90 tablet 4 Active amoxicillin (AMOXIL) 875 mg tablet Take 1 tablet (875 mg total) by mouth 2 (two) times a day 14 tablet 5 Active hydrOXYzine (VISTARIL) 25 mg capsule Take 1 capsule (25 mg total) by mouth 3 (three) times a day as needed for anxiety 15 capsule 5 Active Active Problems Problem Noted Date Diagnosed Date Hyperpigmentation 02/23/2023 Assessment & Plan (02/23/2023 10:33 AM CDT): New concern Worsening Referral to dermatology given F/u prn Sacroiliitis 02/17/2023 Encounter for wellness examination 01/22/2023 Assessment & Plan (02/23/2023 10:19 AM CDT): Ordered CBC, cmp, lipid, hgb a1c, hep c TSH w/ reflex to t4 Flu declines, she was hospitalized for taking the vaccine Pcv20 declines Colonoscopy will get recent records from 2 years ago Pap smear: referral to ob Mammo referral placed Zoster vaccine-declines F/u in 1 year for annual Lumbar radiculopathy 12/10/2022 Assessment & Plan (02/23/2023 6:36 AM CDT): Continue following with pain management Lumbar spondylosis 12/10/2022 Degeneration of lumbar intervertebral disc 04/14 Degenerative lumbar spinal stenosis 04/14/2022 Chronic right-sided low back pain without sciati ca 04/14/2022 Chronic right shoulder pain 04/14/2022 Assessment & Plan (02/23/2023 10:04 AM CDT): Continue following with pain management intermediate frame tender (current) use of opiate analgesic 10/2021 Major depressive disorder, r ecurrent episode, moderate with anxious distress 07/11/2020 Assessment & Plan (02/23/2023 10:13 AM CDT): Stable / clinically quiescent. Will continue to monitor. Denies suicidal ideation or homicidal ideation F/u in 2 weeks Passage of loose stools 05/06/2020 Humeral surgical neck fracture 11/27/2019 Assessment & Plan (11/27/2019 6:53 PM CDT): S/p supraclavicular nerve block today 11/26 with good results. Plan for surgery tomorrow afternoon . Pain control Tobacco use 11/27/2019 Assessment & Plan (02/23/2023 6:37 AM CDT): She was advised to quit smoking; the risks of continued tobacco use discussed. Assessment & Plan (11/27/2019 6:50 PM CDT): States she last smoked two weeks ago. Smokes 7 cigarettes a day. Hyperglycemia 07/30/2019 Hyperthyroidism 07/30/2019 Assessment & Plan (02/23/2023 6:35 AM CDT): Recommend following up with endocrinology Chronic narcotic use 05/12/2019 Acute bronchitis 04/19/2019 Irritable bowel syndrome 11/28/2018 Assessment & Plan (02/23/2023 6:36 AM CDT): Stable Recommend Imodium for symptomatic relief for the diarrhea Diarrhea 09/02/2018 Assessment & Plan (11/27/2019 6:50 PM CDT): Monitor for now. If she continues to have diarrhea needs c.diff checked before giving lomotil. She has been on abx recently for possible tooth infection but completed these two days ago. Assessment & Plan (09/02/2018 1:31 PM CDT): Increased stress over last few months and change in stool. Based on symptoms, this is most likely IBS-D but will schedule colonoscopy to rule out other possible causes. Colonoscopy with Dr. Willams, imodium prn, cholestyramine once daily, Levsin prn for abdominal pain. Lower abdominal pain 09/02/2018 Assessment & Plan (09/02/2018 1:30 PM CDT): Cramping abdominal pain that is relieved by BM. Levsin SL up to every 4 hours for abdominal pain. If insurance does not pay for this patient instructed to use Bentyl that she has at home. Anxiety 11/22/2017 Assessment & Plan (02/23/2023 10:12 AM CDT): Worsening Declines therapy F/u in 2 weeks to discuss medications Hypertension 07/19/2014 Overview (08/14/2016): Hypertension Assessment & Plan (02/23/2023 10:35 AM CDT): Bp in the office today BP Readings from Last 1 Encounters: 02/23/23 (!) 180/100 Repeat 140/100 asymptomatic Goal <130/80 Continue current regimen of amlodipine 2.5 mg daily valsartan hydrochlorothiazide 160-12.5 mg daily Increase metoprolol to 100mg daily Recommend DASH diet, heart-healthy lifestyle, exercise. Discussed the risks of hypertension. F/u in 2 weeks Assessment & Plan (11/27/2019 6:48 PM CDT): Elevated blood pressure. Likely high due to pain. Will continue her home meds. PRN hydralazine. Uncontrolled hypertension Closed displaced comminuted fracture of shaft of right humerus Immunizations Immunization Administration Dates Next Due Influenza, Unspecified 02/23/2023(Deferred: Romina ent Refused) Surgical History Surgery Date Site/Laterality Comments TUBAL LIGATION Bilateral tubal ligation TUBAL LIGATION Tubal ligation OTHER SURGICAL HISTORY 05/10/2001 - 05/09/2002 Cervical dysplasia: LEEP - NALINI 2 SHOULDER SURGERY FL UPPER GI AIR CONTRAST W KUB 06/01/2019 Left Medical History Medical History Date Comments Hypertension Hypertension Arthritis Arthritis Hx Other Medical Cervical dyspla lisbeth; Comments: RED 07/19/2014 - Graves disease Family History Medical History Relation Name Comments Coronary artery disease Father Ruben nary artery disease; Heart attack Father Myocardial infa rction; Cause of : Myocardial infarction Hypertension Father Hypertension; Cervical cancer Mother Cancer, cerv ical; Hypertension Mother Hypertension; Lung cancer Mother Cancer, lung; / Cancer, lung; Cause of : Cancer, lung Hypertension Other 1 Family history of Hypertension; Other Other 2 No family histo ry of Breast cancer; Relation Name Status Comments Father (Age 56) Mother (Age 70) Other 1 Other 2 Social History Tobacco Use Types Packs/Day Years Used Date Smoking Tobacco: Some Days Cigarettes 0.5 20 Smokeless Tobacco: Never Comments:Smoking History Pac ks/day: 1 Packs Alcohol Use Standard Drinks/Week Comments No 0 (1 standard drink = 0.6 oz pur e alcohol) AUDIT-C Answer Date Recorded Q1: How often do you have a drink containing alcohol? Never 02/23/2023 Q2: How many drinks containi ng alcohol do you have on a typical day when you are drinking? Patient does not drink Q3: How often do you have si x or more drinks on one occasion? Never 02/23/2023 PHQ-2 Answer Date Recorded PHQ-2 Total Score (If total score is 3 or more points, staff should administer the PHQ-9) 0 01/13/2024 PHQ-9 Answer Date Recorded PHQ-9 Total Score 1 01/13/2024 Personal Safety Answer Date Recorded Have you ever been in or are you currently in a harmful physical or emotional relationship or is someone making you feel afraid or unsafe? Denies 11/02/2024 Comments No Sex and Gender Information Value Date Recorded Sex Assigned at Not on file Legal Sex Female 1:08 AM PROJECT FINANCIAL ANALYST Gender Identity Not on file Sexual Orientation Not on file Obstetrics History Para Term AB IAB SAB Ectopic Multiple Livin g Live Births 5 Date Outcome GA Total Labor Labor/2nd/3rd Weight Sex Type Anes PTL Tish A1 A5 Name Clin Last Filed Vital Signs Vital Sign Reading Time Taken Comments Blood Pressure 183/86 11/02/2024 9:26 AM CDT Pulse 65 11/02/2024 9:26 AM CDT Temperature 36.6 C (97.8 F) 11/02/2024 9:26 AM CDT Respiratory Rate 16 11/02/2024 9:26 AM CDT Oxygen Saturation 99% 11/02/2024 9:26 AM CDT Inhaled Oxygen Concentration - - Weight 86.2 kg (190 lb) 11/02/2024 9:26 AM CDT Height 172.7 cm (5' 8) 11/02/2024 9:26 AM CDT Body Mass Index 28.89 11/02/2024 9:26 AM CDT Plan of Treatment Health Maintenance Due Date Last Done Comments Cervical Cancer Screening 1959 Colon Cancer Screening-Colonoscopy 1960 Hepatitis C Screening 1960 Osteoporosis Screening-Bone Density Scan 1959 DTaP/Tdap/Td Vaccine (1 - Tdap) 12/04/1970 Hepatitis B Screening 12/04/1977 Pneumococcal vaccine 65+ (1 of 2 - PCV) 12/04/1978 Zoster Vaccine (1 of 2) 12/04/2009 Breast Cancer Screening-Mammogram 07/22/2021 07/22/2020, 07/22/2020, 03/09/2018 Fall Risk Assessment 02/24/2024 02/23/2023, 12/01/2019, 09/02/2018 Well Visit 65+ 12/04/2024 02/23/2023 Covid-19 Vaccine (3 - 2024-2 6 season) 2025 09/23/2020, 08/27/2020 Influenza Vaccine (#1) 2025 02/04/2018, 2014 Depression Screening 01/12/2025 01/13/2024, 01/13/2024, 10/20/2023, Additional history exists Goals Goal Patient Goal Type Associated Problems Recent Progress Patient-Stated? Author [facility] On track( 023 2:17 PM CDT) Jessica Banda, RN Note: Patient will establish a comfort-function goal and identify the pain level that will allow the patient to perform desired activities and achieve an acceptable quality of life. Medical Devices Implanted Type Area Professor/Nurse Anesthetist Device Identifier Shelf Expiration Date Model / Serial / Lot Exactech 320-35-01 Unassigned Unassigned - [id number] - [id number] Implanted:Qty: 1 on 11/28/2019 by Aden Lynn MD at [facility] Right: Shoulder Exactech 10/11/2029 320-35-01 / [id number] / N/A Exactech 320-15-05 Equinoxe Lock Reverse Shoulder Glenosphere Screw Bone - [id number] - [id number] Implanted:Qty: 1 on 11/28/2019 by Aden Lynn MD at [facility] Right: Shoulder [employer]ech 09/24/2024 320-15-05 / [id number] / N/A Exactech 320-20-22 Equinoxe 4.5mm 22mm Kit Compression Lock Cap Reverse Shoulder - [id number] - [id number] Implanted:Qty: 1 on 11/28/2019 by Aden Lynn MD at [facility] Right: Shoulder [employer] 10/16/2021 320-20-22 / [id number] / N/A Ex[employer]ech 320-20-34 Equinoxe 4.5mm 34mm Kit Compression Lock Cap Reverse Shoulder - [id number] - [id number] Implanted:Qty: 1 on 11/28/2019 by Aden Lynn MD at [facility] Right: Shoulder [employer]ech 09/18/2024 320-20-34 / [id number] / N/A Component 40mm Glenoid Glenosphere Rvrs Shoulder - [id number] - [id number] Implanted:Qty: 1 on 11/28/2019 by Aden Lynn MD at [facility] Right: Shoulder [employer]ech 08/08/2029 320-31-40 / [id number] / N/A [employer] 1352.15.050 Body Humrl Smr Shldr Ti Finned Rvrs Lock Screw - [id number] Implanted:Qty: 1 on 11/28/2019 by Aden Lynn MD at [facility] Right: Shoulder [employer] 06/09/2024 1352.15.050 / / [id number] [employer] 1304.15.180 Smr 18mm 80mm Finned Cementless Shoulder Stem Humeral - [id number] Implanted:Qty: 1 on 11/28/2019 by Aden Lynn MD at [facility] Right: Shoulder [employer] 10/08/2023 1304.15.180 / / [id number] [employer] [id number] Smr 40mm Reverse Retentive +3mm Liner Shoulder Sterile Latex Free - [id number] Implanted:Qty: 1 on 11/28/2019 by Aden Lynn MD at [facility] Right: Shoulder [employer] 05/09/2024 [id number] / / [id number] Procedures Procedure Name Priority Date/Time Associated Diagnosis Comments SCREENING MAMMOGRAM BILATERAL W HA Schedule Routine, Read Routine (OP Routine) 03/09/2018 3:19 PM CDT Encounter for general adult medical examination w/o abnormal findings from Last 3 Months or Most Recently Relevant to Health Maintenance Results * Screening Mammogram Bilateral W Ha (03/09/2018 3:19 PM CDT) Anatomical Region Laterality Modality Breast Bilateral Mammography 03/10/2018 6:51 AM CDT Impressions 03/10/2018 6:55 AM CDT BIRADS Category 1: Negative mammogram. Digital technology was employed plus computer-aided detection software (R2) was utilized in interpretation of these images. This facility utilizes a reminder system to notify patients of yearly mammograms. Electronically signed by: Jf Arguelles M.D. Narrative 03/10/2018 6:55 AM CDT EXAMINATION: Digital screening mammogram with tomosynthesis. HISTORY: Breast cancer screening PRIOR: None DENSITY: Scattered fibroglandular densities FINDINGS: Little change is noted. No new dominant mass, architectural distortion, nipple retraction, skin thickening, or suspicious calcifications are seen. Lake Davies MD IMG MAMMO PROCEDURES Final Re sult from Last 3 Months or Most Recently Relevant to Health Maintenance Insurance [facility] Address: [address] [address] [place] [address] [facility] Address: [address] [address] [place] [address] Advance Directives For more information, please contact: [phone] * Full Code (Latest Code Status on File) Date Activated Date Inactivated Comments 11/27/2019 4:31 PM 12/01/2019 10:56 PM Care Teams Abrasive Mixer Helper Relationship Specialty Start Date End Date Arslan Menchaca MD [address] [place] [address] PCP - General Family Practice 11/02/24 Conor Moore MD [address] [place] [address] Surgeon Orthopedic Surgery 12/01/19
--- OUTSIDE RECORDS SUMMARY | 2025-04-26 13:35 | XMS_ITS | Encounter Summary ---
Author Organization [facility] Address [address] [place] [address] Phone Care Team Providers Care Adobe Cq Developer Name Role Phone Valentin Diaz MD Primary Care Provider [phone] Joyce Church APPLICATION INTEGRATOR Unavailable Unavailab Carl Trinidad MD Unavailable Kaity Cancino MD Primary Care Provider +- [phone] Chicho Walker MD Primary Care Provider + [phone] Kaity Cancino MD Primary Care Provider + [phone] Chicho Walker MD Primary Care Provider + [phone] Reason for Visit * Reason Comments Medication Refill Encounter Details Date Type Department Care Team (Late st Contact Info) Description 10/17/2020 Refill [facility] - Family Medicine [facility] [address] [place] [address] Valentin Diaz MD [address] [address] Medication Refill Social History Tobacco Use Types [...] Telephone Encounter - Sera Chowdary RN - 10/18/2020 11:23 AM CDT Can you please resend this? Thank you ergocalciferol (VITAMIN D) 87999 UNIT Capsule 12 Capsule 0 09/22/2020 12/09/2020 Sig - Route: Take 1 Capsule by mouth once a week for 12 doses. - Oral Sent to pharmacy as: Vitamin D (Ergocalciferol) 1.25 MG (03820 UT) Oral Capsule (VITAMIN D) Class: E Prescribe E-Prescribing Status: Receipt confirmed by pharmacy (09/22/2020 1:22 AM CDT) ergocalciferol (VITAMIN D) 30755 UNIT Capsule [[id number]] 1 Status: Active Ordering user: Valentin Diaz MD 09/22/20121 Authorized by: Valentin Diaz MD Frequency: Weekly 09/22/20 - 12 occurrences Pharmacy [id number] [place], [place] - [address] [facility] documented in this encounter Plan of Treatment Not on file documented as of this encounter Visit Diagnoses Not on filedocumented in this encounter Additional Health Concerns Assessment Noted Time PHQ-9 Depression Total Score: 7 06/20/19 21 1:00 PM COPY HOLDER documented as of this encounter Care Teams Adobe Cq Developer Relationship Specialty Start Date End Date Valentni Diaz MD [address] [facility] [address] [place] [address] PCP - General Family Medicine 11/28/18 02/23/23 Kaity Cancino MD [address] [place] [address] PCP - General Family Medicine 03/10/24 05/29/24 Chicho Walker MD [address] [place] [address] PCP - General Internal Medicine 05/30/24 06/20/24 Kaity Cancino MD [address] [place] [address] PCP - General Family Medicine 06/21/24 07/19/24 Chicho Walker MD [address] [place] [address] PCP - General Internal Medicine 07/20/24 Joyce Church LSW [place] Judicial Registrar 07/31/21 10/14/21 Carl Myles MD [address] [facility] [address] [place] [address] Consulting Physician Colon and Rectal Surgery 03/04/22 documented as of this encounter
--- OUTSIDE RECORDS SUMMARY | 2025-04-26 13:35 | XMS_ITS | Encounter Summary ---
Author Organization [facility] Address [address] [place] [address] Phone Care Team Providers Care Associate Product Manager Name Role Phone Valentin Diaz MD Primary Care Provider [phone] Joyce Church ANIMAL HUSBANDRY WORKER Unavailable Unavailab Carl Trinidad MD Unavailable Kaity Cancino MD Primary Care Provider +- [phone] Chicho Walker MD Primary Care Provider + -[phone] Kaity Cancino MD Primary Care Provider + [phone] Chicho Walker MD Primary Care Provider + [phone] Reason for Visit * Reason Comments Medication Refill Encounter Details Date Type Department Care Team (Late st Contact Info) Description 10/17/2020 Refill [facility] - Family Medicine [facility] [address] [place] [address] Valentin Diaz MD [address] [address] Medication Refill Social History Tobacco Use Types [...] Telephone Encounter - Sera Chowdary RN - 10/17/2020 3:38 PM CDT [place] 10/01/20 for 15 days - refill due Vitamin D 3 month supply reordered 09/22/20 Medication failed the protocol, provider to review and approve the medication order if appropriate. Requested Prescriptions Pending Prescriptions Disp Refills LORazepam (ATIVAN) 0.5 MG Tablet [Pharmacy Med Name: LORAZEPAM 0.5 MG TABLET] 30 Tablet 0 Sig: TAKE 1 TABLET BY MOUTH TWICE A DAY NEEDED FOR ANXIETY healthfinch Not Delegated - Anesthesia: Anesthetics & Sedatives Failed - 10/17/2020 3:38 PM Failed - This refill cannot be delegated Passed - Valid encounter within last 6 months Past Office Visits Recent Outpatient Visits 1 month ago Vitamin D insufficiency [facility] - Valentin Marques MD 4 months ago Hyperthyroidism [facility] - Valentin Marques MD 5 months ago Essential hypertension [facility] Valentin Marques MD 8 months ago Palpitations [facility] Valentin Mcmahon MD 10 months ago History of humerus fracture [facility] Valentin Marques MD Upcoming Appointments Future Appointments In 2 months Valentin Diaz MD [facility] PICC NURSE - Recent and Past Visits Recent Visits Date Type Provider Dept 09/16/20 Office Visit Valentin Diaz MD [facility] 06/17/20 Office Visit Valentin Diaz MD [facility] 04/23/20 Telemedicine Valentin Diaz MD [facility] 02/14/20 Office Visit Valentin Diaz MD [facility] 12/15/19 Office Visit Valentin Diaz MD [facility] 11/14/19 Office Visit Valentin Diaz MD [facility] 11/09/19 Appointment Valentin Diaz MD [facility] 11/08/19 Appointment Valentin Diaz MD [facility] 09/12/19 Telemedicine Valentin Diaz MD [facility] Showing recent visits within past 460 days with a meds authorizing provider and meeting all other requirements Future Appointments Date Type Provider Dept 12/17/20 Appointment Valentin Diaz MD [facility] Showing future appointments within next 90 days with a meds authorizing provider and meeting all other requirements Refused Prescriptions Disp Refills ergocalciferol (VITAMIN D) 86374 UNIT Capsule [Pharmacy Med Name: VITAMIN D2 1.25MG(50,000 UNIT)] 12 Capsule 0 Sig: TAKE 1 CAP BY MOUTH ONCE A WEEK FOR 12 DOSES healthfinch Off-Protocol Failed - 10/17/2020 3:38 PM Failed - Medication not assigned to a protocol, review manually. Passed - Valid encounter within last 12 months Past Office Visits Recent Outpatient Visits 1 month ago [facility] 4 months [facility] 5 months ago Essential hypertension [facility] Valentin Marques MD 8 months ago [facility] MD 10 months ago History of humerus fracture [facility] Valentin Marques MD Upcoming Appointments Future Appointments In 2 months Valent[facility] Diaz MD [facility] - Recent and Past Visits Recent Visits Date Type Provider Dept 09/16/20 Office Visit Valentin Diaz MD [facility] 06/17/20 Office Visit Valentin Diaz MD [facility] 04/23/20 Telemedicine Valentin Diaz MD [facility] 02/14/20 Office Visit Valentin Diaz MD [facility] 12/15/19 Office Visit Valentin Diaz MD [facility] 11/14/19 Office Visit Valentin Diaz MD [facility] 11/09/19 Appointment Valentin Diaz MD [facility] 11/08/19 Appointment Valentin Diaz MD [facility] 09/12/19 Telemedicine Valentin Diaz MD [facility] Showing recent visits within past 460 days with a meds authorizing provider and meeting all other requirements Future Appointments Date Type Provider Dept 12/17/20 Appointment Valentin Diaz MD [facility] Showing future appointments within next 90 days with a meds authorizing provider and meeting all other requirements * Telephone Encounter - Sera Chowdary RN - 10/17/2020 3:37 PM CDT ergocalciferol (VITAMIN D) 58764 UNIT Capsule 12 Capsule 0 09/22/2020 12/09/2020 Sig - Route: Take 1 Capsule by mouth once a week for 12 doses. - Oral Sent to pharmacy as: Vitamin D (Ergocalciferol) 1.25 MG (86799 UT) Oral Capsule (VITAMIN D) Class: E Prescribe E-Prescribing Status: Receipt confirmed by pharmacy (09/22/2020 1:22 AM CDT) ergocalciferol (VITAMIN D) 61046 UNIT Capsule [[id number]] 1 Status: Active Ordering user: Valentin Diaz MD 09/22/20121 Authorized by: Valentin Diaz MD Frequency: Weekly 09/22/20 - 12 occurrences [facility]acy [id number] [place], [place] - [address] [facility] documented in this encounter Plan of Treatment Not on file documented as of this encounter Visit Diagnoses Not on filedocumented in this encounter Additional Health Concerns Assessment Noted Time PHQ-9 Depression Total Score: 7 06/20/19 21 1:00 PM ELECTRICIAN RADIO documented as of this encounter Care Teams Associate Product Manager Relationship Specialty Start Date End Date Valentin Diaz MD #[address] [address] PCP - General Family Medicine 11/28/18 02/23/23 Kaity Cancino MD [address] [place] [address] PCP - General Family Medicine 03/10/24 05/29/24 Chicho Walker MD [address] [place] [address] PCP - General Internal Medicine 05/30/24 06/20/24 Kaity Cancino MD [address] [place] [address] PCP - General Family Medicine 06/21/24 07/19/24 Chicho Walker MD [address] [place] [address] PCP - General Internal Medicine 07/20/24 Joyce Church LSW [place] Forward Air Controller/Air Officer 07/31/21 10/14/21 Carl Myles MD #[address] [address] Consulting Physician Colon and Rectal Surgery 03/04/22 documented as of this encounter
--- OUTSIDE RECORDS SUMMARY | 2025-04-26 13:35 | XMS_ITS | Encounter Summary ---
Author Organization [facility] Address [address] [place] [address] Phone Care Team Providers Care Wilton Weaver Name Role Phone Valentin Diaz MD Primary Care Provider [phone] [phone] Joyce Church RAILROAD CAR REPAIR SUPERVISOR Unavailable Unavailab Carl Trinidad MD Unavailable Kaity Cancino MD Primary Care Provider +- [phone] Chicho Walker MD Primary Care Provider + -[phone] Kaity Cancino MD Primary Care Provider + [phone] Chicho Walker MD Primary Care Provider +1 -[phone] Reason for Visit * Reason Comments Medication Refill Encounter Details Date Type Department Care Team (Late st Contact Info) Description 12/01/2020 Refill [facility] #2 [place] [address] Valentin Diaz MD #[address] [address] Medication Refill Social History Tobacco Use Types [...] Telephone Encounter - Sera Chowdary RN - 12/02/2020 11:45 AM CDT Medication failed the protocol, provider to review and approve the medication order if appropriate. Requested Prescriptions Pending Prescriptions Disp Refills valsartan-hydroCHLOROthiazide (DIOVAN-HCT) 160-12.5 MG Tablet [Pharmacy Med Name: VALSARTAN-HCTZ 160-12.5 MG TAB] 90 Tablet 3 Sig: TAKE 1 TABLET BY MOUTH EVERY DAY ANGIOTENSIN-II RECEPTOR BLOCKERS-DIURETICS COMBO PROTOCOL Failed - 12/01/2020 12:03 AM Failed - Serum sodium on record in past 12 months SODIUM Date Value Ref Range Status 10/01/2020 135 (L) 136 - 144 mmol/L Final Passed - Serum potassium on record in past 12 months POTASSIUM Date Value Ref Range Status 10/01/2020 4.0 3.5 - 5.1 mmol/L Final Passed - BP on record in the past year Clinician-entered: BP Readings from Last 3 Encounters: 09/16/20 126/74 09/10/20 120/82 07/17/20 152/90 Patient-entered: No data recorded Passed - Visit with relevant provider in past year or upcoming 90 days Recent Visits Date Type Provider Dept 09/16/20 [...] Provider Dept 12/17/20 Appointment Valentin Diaz MD [facility] Showing future appointments within next 90 days and meeting all other requirements Passed - GFR on record in past 12 months GFR, EST. Date Value Ref Range Status 10/01/2020 >60 >=60 Final Comment: Creatinine Clearance is the preferred criteria for selecting drug dose adjustments in renally impaired patients. The GFR is provided as additional pertinent clinical information. GFR is reported in mL/min/1.73 sq m. 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 documented as of this encounter Care Teams Wilton Weaver Relationship Specialty Start Date End Date Valentin Diaz MD [address] [address] PCP - General Family Medicine 11/28/18 02/23/23 Kaity Cancino MD [address] [place] [address] PCP - General Family Medicine 03/10/24 05/29/24 Chicho Walker MD [address] [place] [address] PCP - General Internal Medicine 05/30/24 06/20/24 Kaity Cancino MD [address] [place] [address] PCP - General Family Medicine 06/21/24 07/19/24 Chicho Walker MD [address] [place] [address] PCP - General Internal Medicine 07/20/24 Joyce Church LSW [place] Elevator Repair Mechanic 07/31/21 10/14/21 Carl Myles MD #[address] [address] Consulting Physician Colon and Rectal Surgery 03/04/22 documented as of this encounter
--- OUTSIDE RECORDS SUMMARY | 2025-04-26 13:35 | XMS_ITS | Encounter Summary ---
Author Organization [facility] Address [address] [place] [address] Phone Care Team Providers Care Amusement Park Worker Name Role Phone Valentin Diaz MD Primary Care Provider [phone] [phone] Joyce Church STUDENT LIFE DEAN Unavailable Unavailab Carl Trinidad MD Unavailable Kaity Cancino MD Primary Care Provider +- [phone] Chicho Walker MD Primary Care Provider + -[phone] Kaity Cancino MD Primary Care Provider + [phone] Chicho Walker MD Primary Care Provider + -[phone] Reason for Visit * Reason Comments Medication Refill Encounter Details Date Type Department Care Team (Late st Contact Info) Description 01/25/2021 Refill [facility] #2 [place] [address] Valentin Diaz MD #[address] [address] Medication Refill Social History Tobacco Use Types [...] have Coronavirus / COVID-19? No / Unsure 01/17/2021 10:28 AM CDT documented as of this encounter Miscellaneous Notes * Telephone Encounter - Tom Wooten MD - 01/27/2021 12:15 PM CDT Prescription pending signature * Telephone Encounter - Sera Chowdary RN - 01/27/2021 10:52 AM CDT 01/11/21 for 15 days * Telephone Encounter - Sera Chowdary RN - 01/27/2021 10:52 AM CDT Medication failed the protocol, provider to review and approve the medication order if appropriate. Requested Prescriptions Pending Prescriptions Disp Refills LORazepam (ATIVAN) 0.5 MG Tablet [Pharmacy Med Name: LORAZEPAM 0.5 MG TABLET] 30 Tablet 0 Sig: TAKE 1 TABLET BY MOUTH TWICE A DAY NEEDED FOR ANXIETY [facility]ch Not Delegated - Anesthesia: Anesthetics & Sedatives Failed - 01/27/2021 10:51 AM Failed - This refill cannot be delegated Passed - Valid encounter within last 6 months Past Office Visits Recent Outpatient Visits 1 month ago Diarrhea, unspecified type [facility] - Valentin Marques MD 4 months ago Vitamin D insufficiency [facility] - Valentin Marques MD 7 months ago Hyperthyroidism [facility] - Valentin Marques MD 9 months ago [facility] 11 months [facility] MD Upcoming Appointments Future Appointments In 1 month Valentin Diaz MD [facility] Recent and Past Visits Recent Visits Date Type Provider Dept 12/17/20 Office Visit Valentin Diaz MD [facility] 09/16/20 Office Visit Valentin Diaz MD [facility] 06/17/20 Office Visit Valentin Diaz MD [facility] 04/23/20 Telemedicine Valentin Diaz MD [facility] 02/14/20 Office Visit Valentin Diaz MD [facility] 12/15/19 Office Visit Valentin Diaz MD [facility] 11/14/19 Office Visit Valentin Diaz MD [facility] 11/09/19 Appointment Valentin Diaz MD [facility] 11/08/19 Appointment Valentin Diaz MD [facility] Showing recent visits within past 460 days with a meds authorizing provider and meeting all other requirements Future Appointments Date Type Provider Dept 03/19/21 Appointment Valentin Diaz MD [facility] Showing [...] Total Score: 7 06/20/19 21 1:00 PM PULL OVER documented as of this encounter Care Teams Amusement Park Worker Relationship Specialty Start Date End Date Valentin Diaz MD [address] [place] [id number] PCP - General Family Medicine 11/28/18 02/23/23 Kaity Cancino MD [address] [place] [address] PCP - General Family Medicine 03/10/24 05/29/24 Chicho Walker MD [address] [place] [address] PCP - General Internal Medicine 05/30/24 06/20/24 Kaity Cancino MD [address] [place] [address] PCP - General Family Medicine 06/21/24 07/19/24 Chicho Walker MD [address] [place] [address] PCP - General Internal Medicine 07/20/24 Joyce Church, SARAN [place] Light Out Examiner 07/31/21 10/14/21 Carl Myles MD #[address] [address] Consulting Physician Colon and Rectal Surgery 03/04/22 documented as of this encounter
--- OUTSIDE RECORDS SUMMARY | 2025-04-26 13:35 | XMS_ITS | Encounter Summary ---
Author Organization [facility] Address [address] [place] [address] Phone Care Team Providers Care Mixer Dry Food Products Name Role Phone Carl Myles MD Unavailable Kaity Cancino MD Primary Care Provider + [phone] Chicho Walker MD Primary Care Provider +[phone] Kaity Cancino MD Primary Care Provider + [phone] Chicho Walker MD Primary Care Provider + [phone] Reason for Visit * Reason Comments Medication Refill Encounter Details Date Type Department Care Team (Late st Contact Info) Description 12/12/2023 Refill [facility] #[address] [place] [address] Valentin Diaz MD #[address] [address] Medication Refill Social History Tobacco Use Types [...] Telephone Encounter - Sera Chowdary RN - 12/13/2023 8:25 AM CDT Encounter Details Date Type Department Care Team (Latest Contact Info) Description 02/23/2023 10:00 AM CDT Office Visit [facility] Primary Care at [address] [place] [address] Neda Muro MD [address] [place] [address] [address] [place] [address] documented in this encounter Plan of Treatment Not on file documented as of this encounter Visit Diagnoses Diagnosis Essential (primary) hypertension Unspecified essential hypertension documented in this encounter Additional Health Concerns Assessment Noted Time PHQ-9 Depression Total Score: 7 06/20/19 21 1:00 PM 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 documented as of this encounter Care Teams Mixer Dry Food Products Relationship Specialty Start Date End Date Kaity Cancino MD [address] [place] [address] PCP - General Family Medicine 03/10/24 05/29/24 Chicho Wlaker MD [address] [place] [address] PCP - General Internal Medicine 05/30/24 06/20/24 Kaity Cancino MD [address] [place] [address] PCP - General Family Medicine 06/21/24 07/19/24 Chicho Walker MD [address] [place] [address] PCP - General Internal Medicine 07/20/24 Carl Myles MD #[address] [address] Consulting Physician Colon and Rectal Surgery 03/04/22 documented as of this encounter
--- OUTSIDE RECORDS SUMMARY | 2025-04-26 13:35 | XMS_ITS | Encounter Summary ---
Author Organization [facility] Address [address] [place] [address] Phone Care Team Providers Care Vat Skimmer Name Role Phone Carl Myles MD Unavailable Chicho Walker MD Primary Care Provider +1 [phone] Reason for Visit * Reason Onset Date Comments Medication Management 10/16/2024 Encounter Details Date Type Department Care Team (Late st Contact Info) Description 10/16/2024 Telephone [facility] [address] [place] [address] Chicho Walker MD [address] [place] [address] Medication Management Social History Tobacco Use Types Packs/Day Years Used Date Smoking Tobacco: Every Day Cigarettes 0.5 45.1 Started: 03/12/1980 Smokeless Tobacco: Never Alcohol Use Standard Drinks/Week Comments Not Currently 0 (1 standard drink = 0.6 oz pur e alcohol) [facility] Utilities Answer Date Recorded In the past 12 months has [employer], gas, oil, or water company threatened to shut off services in your home? Patient declined 07/20/2024 Social Connection and Isolation Panel Answer Date Recorded In a typical week, how many times do you talk on the phone with family, friends, or neighbors? Patient declined 07/20/2024 How often do you get togethe r with friends or relatives? Patient declined 07/20/2024 How often do you attend islam or quaker serv ices? Patient declined 07/20/2024 Do you belong to any clubs o r organizations such as islam groups, unions, fraternal or athletic groups, or [...] Recorded Total Score - Questions 1-9 12 /0 05/2023 [facility] - Occupational Stress Questionnaire Answer Date [...] any time in the past 12 m [facility], were you homeless or living in a custodial (including now)? Patient declined 07/20/2024 Sexually Active Control Partners Comments Not Currently Male Comments No Sex and Gender Information Value Date Recorded Sex Assigned at Not on file Legal Sex Female 11:46 PM CDT Gender Identity Not on file Sexual Orientation Not on file documented as of this encounter Miscellaneous Notes * Telephone Encounter - Chicho Walker MD - 10/16/2024 11:53 AM CDT Hydrocodone refilled at a reduced dosage per tapering guidelines previously discussed with the patient. * Telephone Encounter - Anisa Borjas RN - 10/16/2024 10:52 AM CDT Order pended. * Telephone Encounter - Heide Flores - 10/16/2024 6:50 AM CDT Refill Name of medication needed? HYDROcodone-acetaminophen (NORCO) 10-325 MG Tablet Person calling for refill? [facility]location for refill to be sent to (if is not a written script)? [facility] on [place], [place] [address] or 90 day supply? Please call [facility] (relationship to patient self) back regarding above referenced patient if any questions. Phone number [phone]. Provider: Chicho Walker documented in this encounter Plan of Treatment Not on file documented as of this encounter Visit Diagnoses Diagnosis Chronic pain syndrome documented in this encounter Additional Health Concerns Assessment Noted Time PHQ-9 Depression Total Score: 12 024 3:58 PM CDT documented as of this encounter Care Teams Vat Skimmer Relationship Specialty Start Date End Date Chicho Walker MD [address] [place] [address] PCP - General Internal Medicine 07/20/24 Carl Myles MD #[address] [address] Consulting Physician Colon and Rectal Surgery 03/04/22 documented as of this encounter
--- OUTSIDE RECORDS SUMMARY | 2025-04-26 13:35 | XMS_ITS | Encounter Summary ---
Author Organization [facility] Address [address] [place] [address] Phone Care Team Providers Care Millstone Cleaner Name Role Phone Valentin Diaz MD Primary Care Provider +1 [phone] Joyce Church MINUTE CLERK FOR BASIC TRAFFIC Unavailable Unavailab Carl Trinidad MD Unavailable Kaity Cancino MD Primary Care Provider +- [phone] Chicho Walker MD Primary Care Provider + -[phone] Kaity Cancino MD Primary Care Provider + [phone] Chicho Walker MD Primary Care Provider +1 [phone] Reason for Visit * Reason Comments Medication Refill Encounter Details Date Type Department Care Team (Late st Contact Info) Description 04/07/2021 Refill [facility] [address] [place] [address] Valentin Diaz MD #[address] [address] Medication Refill Social History Tobacco Use Types [...] on file documented as of this encounter Plan of Treatment Not on file documented as of this encounter Visit Diagnoses Not on filedocumented in this encounter Additional Health Concerns Assessment Noted Time PHQ-9 Depression Total Score: 7 06/20/19 21 1:00 PM WELL DIGGER documented as of this encounter Care Teams Millstone Cleaner Relationship Specialty Start Date End Date Valentin Diaz MD #[address] [address] PCP - General Family Medicine 11/28/18 02/23/23 Kaity Cancino MD [address] [place] [address] PCP - General Family Medicine 03/10/24 05/29/24 Chicho Walker MD [address] [place] [address] PCP - General Internal Medicine 05/30/24 06/20/24 Kaity Cancino MD [address] [place] [address] PCP - General Family Medicine 06/21/24 07/19/24 Chicho Walker MD [address] [place] [address] PCP - General Internal Medicine 07/20/24 Joyce Church LSW [place] Interior Design Faculty Member 07/31/21 10/14/21 aCrl Myles MD [address] [place] [address] Consulting Physician Colon and Rectal Surgery 03/04/22 documented as of this encounter
--- OUTSIDE RECORDS SUMMARY | 2025-04-26 13:35 | XMS_ITS ---
Author Organization [facility] Care Team Providers Care Lead Miner Name Role Phone Jake Hussein Unavailable Unavailable Care Team Name Role Address Phone Organization Dates Jake Ampadu PCP [address] [place], [address], [place] (Office): : [facility] 12/02/2019 - 12/14/2019 Mental Status Section Date Assessment Total Score Description 12/14/2019 BIM[facility] 15 cognitively int act CAM 0 No delirium ind icated PHQ-9 00 12/08/2019 BIM[facility] 15 cognitively int act CAM 0 No delirium ind icated PHQ-9 00 Insurance Providers Coverage Status Coverage Type Relationship to Subscriber Member Identifier Subscriber Identifier Group Identifier Payer Identifier and Other information Code: 1 Code System OID:[id number]. 3.221.5 Code System Name: Source of Payment Typology (PHDSC) Display: Medicare Translation : Code: [place] Code System: OID:2.16.84 [id number]. 6.255.1336 Code System Name: Insurance Type Code ([id number]) Display Name: Medicare Part A Problems Problem # Description Date of onset Resolved Date Code CodeSystem Concern Status 1 AFTERCARE FOLLOWING JOINT REPLACEMENT SURGERY 12/03/2019 12/03/[address] completed 2 AFTERCARE FOLLOWING JOINT REPLACEMENT SURGERY 12/01/[address] active 3 ARTHROPATHY, UNSPECIFIED 12/01/[address] active 4 DYSPLASIA OF CERVIX UTERI, UNSPECIFIED 12/01/[address] active 5 ESSENTIAL (PRIMARY) HYPERTENSION 12/01/[address] active 6 MUSCLE WEAKNESS (GENERALIZED) 12/01/[address] active 7 NICOTINE DEPENDENCE, CIGARETTES, UNCOMPLICATED 12/01/[address] active 8 OTHER LACK OF COORDINATION 12/01/[address] active 9 UNSPECIFIED DISPLACED FRACTURE OF SURGICAL NECK OF RIGHT HUMERUS, SUBSEQUENT ENCOUNTER FOR FRACTURE WITH ROUTINE HEALING 12/01/[address] active Reason for Referral No Reasons for Referral Entered Social History Social History Observation Description Start Date End Date Code Code System Current Smoking Status Tobacco smoking consumption unknown 009162573 SNOMED CT Sex Assigned At Female 1960 [address]-4 [facility] Gender Identity Sexual Orientation Vital Signs Code Code System Vitals Name Values and Units Timing Information 9279-1 [facility] Respiratory Rate Value=20.0 Units=/m in 12/14/2019 8462-4 [facility] Blood Pressure-Diastolic Value=95 Un its=mmHg 12/14/2019 8480-6 [facility] Blood Pressure-Systolic Ykynf=375 Un its=mmHg 12/14/2019 8310-5 [facility] Body Temperature Value=96.8 Units= F 12/14/2019 8867-4 [facility] Heart rate Value=85.0 Units=/min 10/2019
--- OUTSIDE RECORDS SUMMARY | 2025-04-26 13:35 | XMS_ITS | Encounter Summary ---
Author Organization [facility] Address [address] [place] [address] Phone Care Team Providers Care Sports Centre Manager Name Role Phone Valentin Diaz MD Primary Care Provider +1 [phone] MENDER Unavailable Unavailab Carl Trinidad MD Unavailable Kaity Cancino MD Primary Care Provider + [phone] Chicho Walker MD Primary Care Provider +[phone] Kaity Cancino MD Primary Care Provider + [phone] Chicho Walker MD Primary Care Provider + -[phone] Reason for Visit * Reason Comments Medication Refill Encounter Details Date Type Department Care Team (Late st Contact Info) Description 09/08/2021 Refill [facility] [address] [place] [address] Valentin Diaz MD #[address] [address] Medication Refill Social History Tobacco Use Types [...] Telephone Encounter - Sera Chowdary RN - 09/09/2021 9:46 AM CDT PDMP 08/21/21 - 15 days Medication failed the protocol, provider to review and approve the medication order if appropriate. Requested Prescriptions Pending Prescriptions Disp Refills LORazepam (ATIVAN) 0.5 MG Tablet [Pharmacy Med Name: LORAZEPAM 0.5 MG TABLET] 30 Tablet 0 Sig: TAKE 1 TABLET BY MOUTH TWICE A DAY NEEDED FOR ANXIETY (DNF 08/21) Not Delegated - Benzodiazepines Protocol Failed - 09/08/2021 9:29 AM Failed - This refill cannot be delegated Passed - Visit with relevant provider in past 12 months or upcoming 90 days Recent Visits Date Type Provider Dept 07/28/21 Office Visit Valentin Diaz MD [facility] 04/23/21 Office Visit Valentin Diaz MD [facility] 12/17/20 Office Visit Valentin Diaz MD [facility] 09/16/20 Office Visit Valentin Diaz MD [facility] Showing recent visits within past 365 days and meeting all other requirements Future Appointments Date Type Provider Dept 10/29/21 Appointment Valentin Diaz MD [facility] Showing future appointments within next 90 days and meeting all other requirements documented in this encounter Plan of Treatment Not on file documented as of this encounter Visit Diagnoses Diagnosis Anxiety Anxiety state, unspecified documented in this encounter Additional Health Concerns Assessment Noted Time PHQ-9 Depression Total Score: 7 06/20/19 21 1:00 PM 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 [address] [place] [address] PCP - General Family Medicine 11/28/18 02/23/23 Kaity Cancino MD [address] [place] [address] PCP - General Family Medicine 03/10/24 05/29/24 Chicho Walker MD [address] [place] [address] PCP - General Internal Medicine 05/30/24 06/20/24 Kaity Cancino MD [address] [place] [address] PCP - General Family Medicine 06/21/24 07/19/24 Chicho Walker MD [address] [place] [address] PCP - General Internal Medicine 07/20/24 Joyce Church, SARAN [place] Store Stock Associate 07/31/21 10/14/21 Carl Myles MD #2 [facility] [address] [place] [address] Consulting Physician Colon and Rectal Surgery 03/04/22 documented as of this encounter
--- OUTSIDE RECORDS SUMMARY | 2025-04-26 13:35 | XMS_ITS | Encounter Summary ---
Author Organization [facility] Address [address] [place] [address] Phone Care Team Providers Care Managing Director Atlas Name Role Phone Valentin Diaz MD Primary Care Provider +1 [phone] Joyce Church MEDICAL SOCIAL CONSULTANT Unavailable Unavailab Carl Trinidad MD Unavailable Kaity Cancino MD Primary Care Provider + [phone] Chicho Walker MD Primary Care Provider +[phone] Kaity Cancino MD Primary Care Provider + [phone] Chicho Walker MD Primary Care Provider + [phone] Reason for Visit * Reason Comments Medication Refill Encounter Details Date Type Department Care Team (Late st Contact Info) Description 05/22/2021 Refill [facility] [address] [place] [address] Valentin Diaz MD #[address] [address] Medication Refill Social History Tobacco Use Types [...] have Coronavirus / COVID-19? No / Unsure 04/23/2021 1:[address] SWEEPER documented as of this encounter Miscellaneous Notes * Telephone Encounter - Sera Chowdary RN - 05/22/2021 2:58 PM CST Medication failed the protocol, provider to review and approve the medication order if appropriate. Requested Prescriptions Pending Prescriptions Disp Refills EC-Naproxen 500 MG Tablet Delayed Response [Pharmacy Med Name: EC-NAPROXEN DR 500 MG TABLET] 60 Tablet 0 Sig: TAKE 1 TABLET BY MOUTH 2 TIMES DAILY NEEDED (BACK PAIN) FOR UP TO 30 DAYS. NSAIDs Protocol Failed - 05/22/2021 12:02 AM Failed - No matching NSAID med order in past 45 days Matching medication order placed on 04/23/2021 2:57 PM Order [id number]: naproxen (EC-Naproxen) 500 MG Tablet Delayed Response (For orders placed between 04/07/2021 2:58 PM and 05/22/2021 2:58 PM) Passed - Normal serum creatinine in past 12 months CREATININE - POCT Date Value Ref Range Status 11/01/2019 1.1 0.6 - 1.3 mg/dL Final CREATININE, BLOOD Date Value Ref Range Status 04/23/2021 1.03 0.60 - 1.10 mg/dL Final Passed - Visit with relevant provider in past 12 months or upcoming 90 days Recent Visits Date Type Provider Dept 04/23/21 Office Visit Valentin Diaz MD [facility] 12/17/20 Office Visit Valentin Diaz MD [facility] 09/16/20 Office Visit MohyudValentin cooper MD [facility] 06/17/20 Office Visit Valentin Diaz MD [facility] Showing recent visits within past 365 days and meeting all other requirements Future Appointments Date Type Provider Dept 06/25/21 Appointment Valentin Diaz MD [facility] Showing future appointments within next 90 days and meeting all other requirements Passed - AST less than 55 or ALT less than 90 in past 12 months SGOT (AST) Date Value Ref Range Status 12/30/2020 15 <=32 U/L Final SGPT (ALT) Date Value Ref Range Status 12/30/2020 11 <=41 U/L Final Passed - HGB greater than 10 or HCT greater than 30 in past 12 months HEMOGLOBIN (HGB) Date Value Ref Range Status 12/30/2020 14.0 12.0 - 15.8 g/dL Final HEMATOCRIT (HCT) Date Value Ref Range Status 12/30/2020 44.2 36.0 - 47.0 % Final ET SWEEPER documented in this encounter Plan of Treatment Not on file documented as of this encounter Visit Diagnoses Not on filedocumented in this encounter Additional Health Concerns Assessment Noted Time PHQ-9 Depression Total Score: 7 06/20/19 21 1:[address] SWEEPER documented as of this encounter Care Teams Managing Director Atlas Relationship Specialty Start Date End Date Valentin Diaz MD [address] [address] PCP - General Family Medicine 11/28/18 02/23/23 Kaity Cancino MD [address] [place] [address] [place] [address] PCP - General Family Medicine 03/10/24 05/29/24 Chicho Walker MD [address] [place] [address] PCP - General Internal Medicine 05/30/24 06/20/24 Kaity Cancino MD [address] [place] [address] PCP - General Family Medicine 06/21/24 07/19/24 Chicho Walker MD [address] [place] [address] PCP - General Internal Medicine 07/20/24 Joyce Church LSW [place] Research Laboratory Manager 07/31/21 10/14/21 Carl Myles MD #[address] [address] Consulting Physician Colon and Rectal Surgery 03/04/22 documented as of this encounter
--- OUTSIDE RECORDS SUMMARY | 2025-04-26 13:35 | XMS_ITS ---
Author Organization [facility] Care Team Providers Care Meteorological Technician Name Role Phone Jake Hussein Unavailable Unavailable Care Team Name Role Address Phone Organization Dates Jake Ampadu [facility] [address] [place], [address], [place] (Office): : [facility] 12/02/2019 - 12/14/2019 Mental Status Section Date [...] Other information Code: 1 Code System OID:2.16.84 0.1.691473. 3.221.5 Code System Name: Source of Payment Typology (PHDSC) Display: Medicare Translation : Code: [place] Code System: OID:2.16.84 0.1.959763. 6.255.1336 Code System Name: Insurance Type Code ([id number]) Display Name: Medicare Part A Problems Problem # Description Date of onset Resolved Date Code CodeSystem Concern Status 1 AFTERCARE FOLLOWING JOINT REPLACEMENT SURGERY 12/03/2019 12/03/[address] completed 2 AFTERCARE FOLLOWING JOINT REPLACEMENT SURGERY 12/01/[address] active 3 ARTHROPATHY, UNSPECIFIED 12/01/[address] active 4 DYSPLASIA OF CERVIX UTERI, UNSPECIFIED 12/01/[address] active 5 ESSENTIAL (PRIMARY) HYPERTENSION 12/01/[address] active 6 MUSCLE WEAKNESS (GENERALIZED) 12/01/[address] active 7 NICOTINE DEPENDENCE, CIGARETTES, UNCOMPLICATED 12/01/[address] active 8 OTHER LACK OF COORDINATION 12/01/[address] active 9 UNSPECIFIED DISPLACED FRACTURE OF SURGICAL NECK OF RIGHT HUMERUS, SUBSEQUENT ENCOUNTER FOR FRACTURE WITH ROUTINE HEALING 12/01/[address] active Reason for Referral No Reasons for Referral Entered Social History Social History Observation Description Start Date End Date Code Code System Current Smoking Status Tobacco smoking consumption unknown 722833030 SNOMED CT Sex Assigned At Female 1960 [address]-7 [facility] Gender Identity Sexual Orientation Vital Signs Code Code System Vitals Name Values and Units Timing Information 9279-1 [facility] Respiratory Rate Value=20.0 Units=/m in 12/14/2019 8462-4 [facility] Blood Pressure-Diastolic Value=95 Un its=mmHg 12/14/2019 8480-6 [facility] Blood Pressure-Systolic Wlsop=407 Un its=mmHg 12/14/2019 8310-5 [facility] Body Temperature Value=96.8 Units= F 12/14/2019 8867-4 [facility] Heart rate Value=85.0 Units=/min 10/2019
--- OUTSIDE RECORDS SUMMARY | 2025-04-26 13:35 | XMS_ITS | Encounter Summary ---
Author Organization [facility] Address [address] [place] [address] Phone Care Team Providers Care Serology Teacher Name Role Phone Valentin Diaz MD Primary Care Provider +1 [phone] Joyce Church DOSIMETRIST Unavailable Unavailab Carl Trinidad MD Unavailable Kaity Cancino MD Primary Care Provider Chicho Walker MD Primary Care Provider Kaity Cancino MD Primary Care Provider + [phone] Chicho Walker MD Primary Care Provider + -[phone] Reason for Visit * Reason Onset Date Comments Medication Refill 03/31/2021 Encounter Details Date Type Department Care Team (Late st Contact Info) Description 03/31/2021 Refill [facility] [address] [place] [id number] Valentin Diaz MD [address]2 [facility] [address] [place] [address] Medication Refill Social History Tobacco Use Types [...] Telephone Encounter - Sera Chowdary RN - 03/31/2021 3:50 PM CST PDMP 03/06/21 Medication failed the protocol, provider to review and approve the medication order if appropriate. Requested Prescriptions Pending Prescriptions Disp Refills HYDROcodone-acetaminophen (NORCO) 10-325 MG Tablet 60 Tablet 0 Sig: Take 1 Tablet by mouth 2 times daily as needed for Severe pain. [facility] Not Delegated - Analgesics: Opioid Agonist Combinations Failed - 03/31/2021 3:50 PM Failed - This refill cannot be delegated Passed - Valid encounter within last 6 months Past Office Visits Recent Outpatient Visits 3 months ago Diarrhea, unspecified type [facility] Valentin Marques MD 6 months ago Vitamin D insufficiency [facility] Valentin Marques MD 9 months ago Hyperthy[facility] Valentin Mcmahon MD 11 months ago Essential hypertension [facility] Valentin Marques MD 1 year ago Palpitations [facility] Valentin Marques MD Upcoming Appointments Future Appointments In 3 weeks Valentin Diaz MD [facility] MAT[facility] STOCKKEEPER YARD - Recent and Past Visits Recent Visits Date Type Provider Dept 12/17/20 Office Visit Valentin Diaz MD [facility] 09/16/20 Office Visit Valentin Diaz MD [facility] 06/17/20 Office Visit Valentin Diaz MD [facility] 04/23/20 Telemedicine Valentin Diaz MD [facility] 02/14/20 Office Visit Valentin Diaz MD [facility] Showing recent visits within past 460 days with a meds authorizing provider and meeting all other requirements Future Appointments Date Type Provider Dept 04/23/21 Appointment Valentin Diaz MD [facility] Showing future appointments within next 90 days with a meds authorizing provider and meeting all other requirements TRANSMISSION SPECIALIST * Telephone Encounter - Annabelle Montalvo - 03/31/2021 8:56 AM CST Name of Medication: HYDROcodone-acetaminophen (NORCO) 10-325 MG Tablet Pharmacy/location for refill to be sent to (if is not a written script)? [id number] [place], [place] - [address] [facility] 30 or 90 day supply? 60 Tablet TRANSMISSION SPECIALIST documented in this encounter Plan of Treatment Not on file documented as of this encounter Visit Diagnoses Diagnosis Chronic pain syndrome Chronic bilateral low back pain with bilateral sciatica documented in this encounter Additional Health Concerns Assessment Noted Time PHQ-9 Depression Total Score: 7 06/20/19 21 1:00 PM AUTO TRANSMISSION SPECIALIST documented as of this encounter Care Teams Serology Teacher Relationship Specialty Start Date End Date Valentin Diaz MD [address] [address] PCP - General Family Medicine 11/28/18 02/23/23 Kaity Cancino MD [address] [place] [address] PCP - General Family Medicine 03/10/24 05/29/24 Chicho Walker MD [address] [place] [address] PCP - General Internal Medicine 05/30/24 06/20/24 Kaity Cancino MD [address] [place] [address] PCP - General Family Medicine 06/21/24 07/19/24 Chicho Walker MD [address] [place] [address] PCP - General Internal Medicine 07/20/24 Joyce Church, DOSIMETRIST [place] Cancer Researcher 07/31/21 10/14/21 Carl Myles MD #[address] [address] Consulting Physician Colon and Rectal Surgery 03/04/22 documented as of this encounter
--- OUTSIDE RECORDS SUMMARY | 2025-04-26 13:35 | XMS_ITS | Encounter Summary ---
Author Organization [facility] Address [address] [place] [address] Phone Care Team Providers Care Apparatus Operator Name Role Phone Valentin Diaz MD Primary Care Provider [phone] Joyce Church ACTIVITY SPECIALIST Unavailable Unavailab Carl Trinidad MD Unavailable Kaity Cancino MD Primary Care Provider + [phone] Chicho Walker MD Primary Care Provider +[phone] Kaity Cancino MD Primary Care Provider + [phone] Chicho Walker MD Primary Care Provider + [phone] Reason for Visit * Reason Comments Medication Refill Encounter Details Date Type Department Care Team (Late st Contact Info) Description 08/06/2020 Refill [facility] [address] [place] [address] Valentin Diaz MD #[address] [address] Medication Refill Social History Tobacco Use Types [...] have Coronavirus / COVID-19? No / Unsure 08/08/2020 12:48 PM CDT documented as of this encounter Miscellaneous Notes * Telephone Encounter - Sera Chowdary RN - 08/06/2020 2:22 PM CDT The original prescription was reordered on 08/06/2020 by Valentin Diaz MD documented in this encounter Plan of Treatment Not on file documented as of this encounter Visit Diagnoses Not on filedocumented in this encounter Additional Health Concerns Assessment Noted Time PHQ-9 Depression Total Score: 7 06/20/19 21 1:00 PM CLINICAL RESEARCH MANAGEMENT ASSOCIATE documented as of this encounter Care Teams Apparatus Operator Relationship Specialty Start Date End Date Valentin Diaz MD #[address] [address] PCP - General Family Medicine 11/28/18 02/23/23 Kaity Cancino MD [address] [place] [address] PCP - General Family Medicine 03/10/24 05/29/24 Chicho Walker MD [address] [place] [address] PCP - General Internal Medicine 05/30/24 06/20/24 Kaity Cancino MD [address] [place] [address] PCP - General Family Medicine 06/21/24 07/19/24 Chicho Walker MD [address] [place] [address] PCP - General Internal Medicine 07/20/24 Joyce Church LSW [place] Cyber Incident Handler 07/31/21 10/14/21 Carl Myles MD #[address] [address] Consulting Physician Colon and Rectal Surgery 03/04/22 documented as of this encounter
--- OUTSIDE RECORDS SUMMARY | 2025-04-26 13:35 | XMS_ITS | Encounter Summary ---
Author Organization [facility] Address [address] [place] [address] Phone Care Team Providers Care Forest Aide Name Role Phone Valentin Diaz MD Primary Care Provider [phone] Joyce Church REGULATORY AUDITOR Unavailable Unavailab Carl Trinidad MD Unavailable Kaity Cancino MD Primary Care Provider +- [phone] Chicho Walker MD Primary Care Provider + -[phone] Kaity Cancino MD Primary Care Provider + [phone] Chicho Walker MD Primary Care Provider + -[phone] Reason for Visit * Reason Comments Medication Refill Encounter Details Date Type Department Care Team (Late st Contact Info) Description 11/14/2020 Refill [facility] #2 [place] [address] Valentin Diaz MD #[address] [address] Medication Refill Social History Tobacco Use Types [...] Telephone Encounter - Sera Chowdary RN - 11/15/2020 1:47 PM CDT The original prescription was reordered on 11/15/2020 by Valentin Diaz MD * Telephone Encounter - Sera Chowdary RN - 11/14/2020 3:42 PM CDT duplicate documented in this encounter Plan of Treatment Not on file documented as of this encounter Visit Diagnoses Not on filedocumented in this encounter Additional Health Concerns Assessment Noted Time PHQ-9 Depression Total Score: 7 06/20/19 21 1:00 PM SUPERVISOR LINE DEPARTMENT documented as of this encounter Care Teams Forest Aide Relationship Specialty Start Date End Date Valentin Diaz MD #[address] [address] PCP - General Family Medicine 11/28/18 02/23/23 Kaity Cancino MD [address] [place] [address] PCP - General Family Medicine 03/10/24 05/29/24 Chicho Walker MD [address] [place] [address] PCP - General Internal Medicine 05/30/24 06/20/24 Kaity Cancino MD [address] [place] [address] PCP - General Family Medicine 06/21/24 07/19/24 Chicho Walker MD [address] [place] [address] PCP - General Internal Medicine 07/20/24 Joyce Church LSW [place] Home Aid 07/31/21 10/14/21 Carl Myles MD #[address] [address] Consulting Physician Colon and Rectal Surgery 03/04/22 documented as of this encounter
--- OUTSIDE RECORDS SUMMARY | 2025-04-26 13:35 | XMS_ITS | Encounter Summary ---
Author Organization [facility] Address [address] [place] [address] Phone Care Team Providers Care Commercial Production Editor Name Role Phone Valentin Diaz MD Primary Care Provider +1 [phone] Joyce Church PROCESS ENGINEER Unavailable Unavailab Carl Trinidad MD Unavailable Kaity Cancino MD Primary Care Provider +- [phone] Chicho Walker MD Primary Care Provider +[phone] Kaity Cancino MD Primary Care Provider + [phone] Cihcho Walker MD Primary Care Provider + -[phone] Reason for Visit * Reason Comments Medication Refill Encounter Details Date Type Department Care Team (Late st Contact Info) Description 07/22/2020 Refill [facility] #2 [place] [address] Valentin Diaz MD #[address] [address] Medication Refill Social History Tobacco Use Types [...] have Coronavirus / COVID-19? No / Unsure 07/22/2020 2:42 PM CDT documented as of this encounter Miscellaneous Notes * Telephone Encounter - Sera Chowdary RN - 07/22/2020 11:35 AM CDT [place] 07/05/20 (15 days supply) Medication failed the protocol, provider to review and approve the medication order if appropriate. Requested Prescriptions Pending Prescriptions Disp Refills LORazepam (ATIVAN) 0.5 MG Tablet [Pharmacy Med Name: LORAZEPAM 0.5 MG TABLET] 30 Tablet 0 Sig: TAKE 1 TABLET BY MOUTH TWICE A DAY NEEDED FOR ANXIETY Not Delegated - Anesthesia: Anesthetics & Sedatives Failed - 07/22/2020 9:02 AM Failed - This refill cannot be delegated Passed - Valid encounter within last 6 months Past Office Visits Recent Outpatient Visits 1 month ago Hyperthyroidism [facility] Valentin Marques MD 3 months ago Essential hypertension [facility] Family Medicine Valentin Marques MD 5 months ago Palpitations [facility] Family Medicine - Valentin Marques MD 7 months ago History of humerus fracture [facility]ques MD 8 months ago [facility] Valentin Marques MD Upcoming Appointments [facility] Mamm[facility], [facility] In 4 weeks Madeleine Keys MD [facility] - Endocr[facility]ology - [facility] In 1 month Valentin Diaz MD [facility] Family Medicine - [place], [facility] CRUMB PACKER - Recent and Past Visits Recent Visits Date Type Provider Dept 06/17/20 Office Visit [facility] MD [facility] 06/12/19 Office Visit Chicho Dwyer APN, CAFETERIA MANAGER [facility] 05/12/19 Office Visit Valentin Diaz MD [facility] [...] Total Score: 7 06/20/19 21 1:00 PM RELAY REPAIRER documented as of this encounter Care Teams Commercial Production Editor Relationship Specialty Start Date End Date Valentin Diaz MD #[address] [address] PCP - General Family Medicine 11/28/18 02/23/23 Kaity Cancino MD [address] [place] [place] [address] PCP - General Family Medicine 03/10/24 05/29/24 Chicho Walker MD [address] [place] [address] PCP - General Internal Medicine 05/30/24 06/20/24 Kaity Cancino MD [address] [place] [address] PCP - General Family Medicine 06/21/24 07/19/24 Chicho Walker MD [address] [place] [place] [address] PCP - General Internal Medicine 07/20/24 Joyce Church, PROCESS ENGINEER OR Screw Machine Hand 07/31/21 10/14/21 Carl Myles MD #[address] [address] Consulting Physician Colon and Rectal Surgery 03/04/22 documented as of this encounter
--- OUTSIDE RECORDS SUMMARY | 2025-04-26 13:35 | XMS_ITS | Encounter Summary ---
Author Organization [facility] Address [address] [place] [address] Phone Care Team Providers Care Neon Installer Name Role Phone Valentin Diaz MD Primary Care Provider +1 [phone] Joyce Church MEDICAL IMAGING DIRECTOR Unavailable Unavailab Carl Trinidad MD Unavailable Kaity Cancino MD Primary Care Provider + [phone] Chicho Walker MD Primary Care Provider +[phone] Kaity Cancino MD Primary Care Provider + [phone] Chicho Walker MD Primary Care Provider + [phone] Reason for Visit * Reason Onset Date Comments Medication Refill Medication Refill 03/05/2021 Encounter Details Date Type Department Care Team (Late st Contact Info) Description 03/04/2021 Refill [facility] Family [facility] #[address] [place] [address] Valentin Diaz MD #[address] [address] Medication Refill; Medication Refill Social History Tobacco Use Types [...] encounter Miscellaneous Notes * Telephone Encounter - Shira Lake RN - 03/05/2021 9:51 AM CDT Medication failed the protocol, provider to review and approve the medication order if appropriate. Requested Prescriptions Pending Prescriptions Disp Refills diphenoxylate-atropine (LOMOTIL) 2.5-0.025 MG Tablet [Pharmacy Med Name: DIPHENOXYLATE-ATROP 2.5-0.025] 30 Tablet 0 Sig: TAKE 1 TABLET BY MOUTH 4 TIMES DAILY NEEDED FOR DIARRHEA FOR UP TO 14 DAYS. [facility] Gastroenterology: Antidiarrheals Passed - 03/04/2021 8:23 AM Passed - Valid encounter within last 12 months Past Office Visits Recent Outpatient Visits 2 months ago [facility], unspecified [facility]in Marques MD 5 months ago Vitamin D insufficiency [facility] Valentin Marques MD 8 months ago [facility]in Mc[facility]hon MD 10 months ago Essential hypertension [facility] Valentin Marques MD 1 year ago Palpitations [facility] Valentin Marques MD Upcoming Appointments Future Appointments In 2 weeks Valentin Diaz MD [facility] MA[facility] - Recent and Past Visits Recent Visits [...] Provider Dept 03/19/21 Appointment Valentin Diaz MD [facility] Showing future appointments within next 90 days with a meds authorizing provider and meeting all other requirements documented in this encounter Plan of Treatment Not on file documented as of this encounter Visit Diagnoses Diagnosis Anxiety Anxiety state, unspecified documented in this encounter Additional Health Concerns Assessment Noted Time PHQ-9 Depression Total Score: 7 06/20/19 1:00 PM ICICLE MACHINE OPERATOR documented as of this encounter Care Teams Neon Installer Relationship Specialty Start Date End Date Valentin Diaz MD #[address] [address] PCP - General Family Medicine 11/28/18 02/23/23 Kaity Cancino MD [address] [place] [address] PCP - General Family Medicine 03/10/24 05/29/24 Chicho Walker MD [address] [place] [address] PCP - General Internal Medicine 05/30/24 06/20/24 Kaity Cancino MD [address] [place] [address] PCP - General Family Medicine 06/21/24 07/19/24 Chicho Walker MD [address] [place] [address] PCP - General Internal Medicine 07/20/24 Joyce Church LSW [place] Cabinetmaker Apprentice 07/31/21 10/14/21 Carl Myles MD #[address] [address] Consulting Physician Colon and Rectal Surgery 03/04/22 documented as of this encounter
--- OUTSIDE RECORDS SUMMARY | 2025-04-26 13:35 | XMS_ITS | Encounter Summary ---
Author Organization [facility] Address [address] [place] [address] Phone Care Team Providers Care Nursing Home Manager Name Role Phone Valentin Diaz MD Primary Care Provider [phone] Joyce Church AUTOMOTIVE FLEET SUPERVISOR Unavailable Unavailab Carl Trinidad MD Unavailable Kaity Cancino MD Primary Care Provider +- [phone] Chicho Walker MD Primary Care Provider + [phone] Kaity Cancino MD Primary Care Provider + [phone] Chicho Walker MD Primary Care Provider + [phone] Reason for Visit * Reason Comments Medication Refill Encounter Details Date Type Department Care Team (Late st Contact Info) Description 01/10/2021 Refill [facility] - Family Medicine [facility] [address] [place] [address] Valentin Diaz MD [address] [address] Medication Refill Social History Tobacco Use Types [...] have Coronavirus / COVID-19? No / Unsure 12/30/2020 1:14 PM CDT documented as of this encounter Miscellaneous Notes * Telephone Encounter - Sera Chowdary RN - 01/14/2021 8:32 AM CDT The original prescription was reordered on 01/11/2021 by Valentin Diaz MD * Telephone Encounter - Sera Chowdary RN - 01/10/2021 3:12 PM CDT Duplicate - request already pended to PCP documented in this encounter Plan of Treatment Not on file documented as of this encounter Visit Diagnoses Diagnosis Anxiety Anxiety state, unspecified documented in this encounter Additional Health Concerns Assessment Noted Time PHQ-9 Depression Total Score: 7 06/20/19 21 1:00 PM [facility] [facility] documented as of this encounter Care Teams Nursing Home Manager Relationship Specialty Start Date End Date Valentin Diaz MD [address] [address] PCP - General Family Medicine 11/28/18 02/23/23 Kaity Cancino MD [address] [place] [address] PCP - General Family Medicine 03/10/24 05/29/24 Chicho Walker MD [address] [place] [address] PCP - General Internal Medicine 05/30/24 06/20/24 Kaity Cancino MD [address] [place] [address] PCP - General Family Medicine 06/21/24 07/19/24 Chicho Walker MD [address] [place] [address] PCP - General Internal Medicine 07/20/24 Joyce Church LSW [place] Car Dumper Operator Helper 07/31/21 10/14/21 Carl Myles MD [address] [address] Consulting Physician Colon and Rectal Surgery 03/04/22 documented as of this encounter
--- OUTSIDE RECORDS SUMMARY | 2025-04-26 13:36 | XMS_ITS | Encounter Summary ---
Author Organization [facility] Address [address] [place] [address] Phone Care Team Providers Care Cargo Operations Agent Name Role Phone Valentin Diaz MD Primary Care Provider [phone] Joyce Church TRANSFORMER SHOP SUPERVISOR Unavailable Unavailab Carl Trinidad MD Unavailable Kaity Cancino MD Primary Care Provider Chicho Walkre MD Primary Care Provider [phone] Kaity Cancino MD Primary Care Provider + [phone] Chicho Walker MD Primary Care Provider + [phone] Reason for Visit * Reason Comments Medication Refill Encounter Details Date Type Department Care Team (Late st Contact Info) Description 06/07/2020 Refill [facility] [address] [place] [address] Valentin Diaz MD #[address] [address] Medication Refill Social History Tobacco Use Types Packs/Day Years Used Date Smoking Tobacco: Former Cigarettes 1 43 1 - 03/08/2015 Smokeless Tobacco: Never Alcohol Use Standard Drinks/Week Comments Not Currently 0 (1 standard drink = 0.6 oz pur e alcohol) pt hasn't ank in 20 years PHQ-2 Answer Date Recorded PHQ-2 Score 10 05/12/2019 Sexually Active Control Partners Comments Not Currently [...] have Coronavirus / COVID-19? No / Unsure 05/20/2020 1:50 PM PROGRAM PROFESSIONAL documented as of this encounter Miscellaneous Notes * Telephone Encounter - Sera Chowdary RN - 06/07/2020 11:05 AM CST The original prescription was discontinued on 04/11/2020 by Alta Momin, PAC RAM PROFESSIONAL documented in this encounter Plan of Treatment Not on file documented as of this encounter Visit Diagnoses Not on filedocumented in this encounter Additional Health Concerns Assessment Noted Time PHQ-9 Depression Total Score: 10 020 9:05 AM PROGRAM PROFESSIONAL documented as of this encounter Care Teams Cargo Operations Agent Relationship Specialty Start Date End Date Valentin Diaz MD [address] [address] PCP - General Family Medicine 11/28/18 02/23/23 Kaity Cancino MD [address] [place] [address] PCP - General Family Medicine 03/10/24 05/29/24 Chicho Walker MD [address] [place] [address] PCP - General Internal Medicine 05/30/24 06/20/24 Kaity Cancino MD [address] [place] [address] PCP - General Family Medicine 06/21/24 07/19/24 Chicho Walker MD [address] [place] [address] PCP - General Internal Medicine 07/20/24 Joyce Church LSW [place] Print Inspector 07/31/21 10/14/21 Carl Myles MD [address] [address] Consulting Physician Colon and Rectal Surgery 03/04/22 documented as of this encounter
== END 2025-04-26 12:44 | disposition home or self-care (01) ==
PROVIDERS: PCP Family Medicine; Visit Provider Family Medicine
DX: Z12.2 Encounter for screening for malignant neoplasm of respiratory organs (principal); Z87.891 Personal history of nicotine dependence
CPT/HCPCS: 71271